=== PATIENT | male | born 1970 | race Caucasian/White ===

== ENCOUNTER → 2016-10-11 | Outpatient (CLI) | payer OTHER ==
[~2016-10-11] MED LIST: ADVIN25/60 INH; ALBU1AER9 INH; ALPR-411 PO; AMLO5TAB4 PO; ATOR-54 PO; OMEP20CA59 PO; RAMI5CAP PO
--- NOTE | 2016-10-11 12:24 | DIAGNOSTIC IMAGING REPORT ---
RIGHT KNEE 2 VIEWS CLINICAL HISTORY: Right knee pain. Findings: AP and lateral views of the right knee are obtained. No prior studies are available for comparison at the time of dictation. The skeletal structures are well mineralized. No fracture is seen. The joint spaces of the knee appear preserved. There is no significant joint effusion. Mild soft tissue swelling is suggested around the knee. IMPRESSION: Mild soft tissue swelling. No fracture is identified. Electronically signed by: Semaj Talbot M.D. 10/11/2016 12:23 PM Dictated Date/Time: 10/11/2016 12:22 PM
== END | disposition home or self-care (01) ==
LOC: C.RADBC 12:04
PROVIDERS: ATTEND Physician Assistant Medical
DX: M25.561 Pain in right knee (principal)

== ENCOUNTER → 2017-03-17 | Outpatient (CLI) | payer OTHER ==
--- NOTE | 2017-03-17 15:37 | DIAGNOSTIC IMAGING REPORT ---
R FOOT MIN 3 VIEWS ROUTINE CLINICAL HISTORY: 46 years-old Male presenting with FOOT PAIN,RIGHT. TECHNIQUE: Frontal, oblique, and lateral views the right foot were obtained. COMPARISON: None. FINDINGS: Accessory navicular noted. Prominent inferior calcaneal enthesophyte. No acute fracture or malalignment. No radiographic soft tissue abnormality. IMPRESSION: No acute osseous injury of the right foot. Electronically signed by: Jai Trujillo M.D. 03/17/2017 3:36 PM Dictated Date/Time: 03/17/2017 3:35 PM
== END | disposition home or self-care (01) ==
LOC: C.RADBC 14:43
PROVIDERS: ATTEND Physician Assistant Medical
DX: M79.671 Pain in right foot (principal)

== ENCOUNTER → 2017-05-19 | Outpatient (CLI) | payer OTHER ==
[2017-05-19 09:33] LABS: BASO % 0.7 %; BASO ABS # 0.03 K/uL (0-0.2); COMPLETE YES; EOS % 5.1 %; HEMATOCRIT 45.1 % (42-52); IG% 0.2 %; LYMPH % 32.9 %; LYMPH ABS # 1.41 K/uL (1.2-3.4); MEAN CELL VOLUME 90.4 fL (80-100); MEAN CORPUSCULAR HEMOGLOBIN 31.1 pg (25-34); MEAN CORPUSCULAR HGB CONC 34.4 g/dl (32-36); MEAN PLATELET VOLUME 10.4 fL (7.4-10.4); MONO % 9.8 %; NEUT % 51.3 %; PLATELET COUNT 168 K/uL (130-400); RED BLOOD COUNT 4.99 M/uL (4.7-6.1); WHITE BLOOD COUNT 4.28 K/uL (4.8-10.8)
[2017-05-19 10:00] LABS: ALT/SGPT 53 U/L (12-78); BLOOD UREA NITROGEN 16 mg/dl (7-18); BUN/CREATININE RATIO 15.7 (10-20); CARBON DIOXIDE 28 mmol/L (21-32); CHLORIDE 104 mmol/L (98-107); CHOLESTEROL 151 mg/dl (0-200); GLUCOSE 90 mg/dl (70-99); POTASSIUM 3.8 mmol/L (3.5-5.1); SODIUM 138 mmol/L (136-145); TRIGLYCERIDES 162 mg/dl (0-150); VERY LOW DENSITY LIPOPROT CALC 32 mg/dl
[2017-05-19 10:01] LABS: ALB/GLOB RATIO 1.4 (0.9-2); ALKALINE PHOSPHATASE 62 U/L (45-117); AST/SGOT 22 U/L (15-37); CHOLESTEROL/HDL RATIO 3.7; HDL CHOLESTEROL 41 mg/dl; LDL CHOLESTEROL CALCULATED 78 mg/dl
[2017-05-19 10:25] LABS: ESTIMATED AVERAGE GLUCOSE 103 mg/dl; HA1C FLAG Normal (Normal)
== END | disposition home or self-care (01) ==
LOC: C.LAB 07:08
PROVIDERS: ATTEND Internal Medicine
DX: E78.5 Hyperlipidemia, unspecified (principal); I10 Essential (primary) hypertension; J45.909 Unspecified asthma, uncomplicated; D86.3 Sarcoidosis of skin; F41.9 Anxiety disorder, unspecified; R07.9 Chest pain, unspecified

== ENCOUNTER → 2017-08-13 | Outpatient (CLI) | payer BC, OTHER ==
--- NOTE | 2017-08-13 12:21 | DIAGNOSTIC IMAGING REPORT ---
CHEST 2 VIEWS ROUTINE CLINICAL HISTORY: J45.909 [id number] Acute bronchitis dyspnea COMPARISON STUDY: 11/15/2012 FINDINGS: The bones soft tissues and hemidiaphragms are normal. The cardiomediastinal silhouette is normal. The lungs are clear. The pulmonary vasculature is normal. IMPRESSION: Negative chest. The above report was generated using voice recognition software. It may contain grammatical, syntax or spelling errors. Electronically signed by: Nicolas Avendaño M.D. 08/13/2017 12:20 PM Dictated Date/Time: 08/13/2017 12:20 PM
== END | disposition home or self-care (01) ==
LOC: C.RADBC 12:09
PROVIDERS: ATTEND Physician Assistant Medical
DX: J20.9 Acute bronchitis, unspecified (principal); J45.909 Unspecified asthma, uncomplicated

== ENCOUNTER → 2017-08-15 | Outpatient (CLI) | payer BC ==
--- NOTE | 2017-08-15 14:56 | DIAGNOSTIC IMAGING REPORT ---
TWO VIEW CHEST CLINICAL HISTORY: Dyspnea. Asthma and bronchitis. FINDINGS: PA and lateral chest radiographs are compared to study dated 08/13/2017 and correlated with chest CT dated 11/15/2012. The heart is top normal for projection. The mediastinal contour is within normal limits. There are low lung volumes with bibasilar atelectasis. The lungs and pleural spaces are otherwise clear. There is no pneumothorax. The bony thorax appears intact. IMPRESSION: Low lung volumes with no active disease in the chest. Electronically signed by: Semaj Talbot M.D. 08/15/2017 2:55 PM Dictated Date/Time: 08/15/2017 2:54 PM
== END | disposition home or self-care (01) ==
LOC: C.RADBC 14:29
PROVIDERS: ATTEND Internal Medicine
DX: J45.909 Unspecified asthma, uncomplicated (principal)

== ENCOUNTER 2022-06-10 18:03 | Inpatient (IN) ==
[2022-06-10 18:35] LABS: Basophils # (auto) 0.03 K/uL (0-0.2); Basophils % (auto) 0.6 %; Eosinophils # (auto) 0.13 K/uL (0-0.50); Eosinophils % (auto) 2.5 %; Hematocrit (blood only) 43.8 % (40.1-51.0); Hemoglobin 15.1 g/dl (14.0-18.0); Immature Granulocytes # (auto) 0.02 K/uL (0.00-0.02); Immature Granulocytes % (auto) 0.4 %; Lymphocytes # (auto) 0.69 K/uL (1.2-3.4); Lymphocytes % (auto) 13.2 %; Mean Corpuscular Hemoglobin 30.5 pg (25.0-34.0); Mean Corpuscular Hgb Conc 34.5 g/dL (32.0-36.0); Mean Corpuscular Volume 88.5 fL (80.0-100.0); Mean Platelet Volume 9.8 fL (9.4-12.4); Monocytes # (auto) 0.44 K/uL (0.24-0.82); Monocytes % (auto) 8.4 %; Neutrophils % (auto) 74.9 %; Platelet Count 169 K/uL (130-400); RDW Coefficient of Variation 12.4 % (11.5-14.5); RDW Standard Deviation 39.9 fL (36.4-46.3); Red Blood Count 4.95 M/uL (4.63-6.08); White Blood Count 5.21 K/ul (4.8-10.8)
[2022-06-10 18:52] LABS: D Dimer 380 ug/L FEU (0-500); Partial Thromboplastin Ratio 0.9; Partial Thromboplastin Time 23.7 Seconds (21.0-31.0); Prothrombin Time 10.3 Seconds (9.0-12.0)
[2022-06-10 18:58] LABS: Alanine Aminotransferase 46 U/L (7-52); Albumin Globulin Ratio 1.6 (0.9-2); Albumin Level 4.1 gm/dl (3.4-5.0); Alkaline Phosphatase 80 U/L (34-104); Anion Gap 9 (3-11); Aspartate Aminotransferase 31 U/L (13-39); Bilirubin,Total 0.8 mg/dl (0.2-1.0); Blood Urea Nitrogen 16 mg/dl (6-23); Calcium 8.6 mg/dl (8.5-10.1); Carbon Dioxide 24 mmol/L (21-32); Chloride 103 mmol/L (98-107); Creatinine Clr Calc Pharmacy 133.8 ml/min; Est GFR (African American) 118.3 ml/min; Est GFR (Non-African American) 102.1 ml/min; Globulin 2.6 gm/dl (2.5-4.0); Glucose 119 mg/dl (70-99(Fasting)); Sodium 136 mmol/L (136-145); Total Protein 6.7 gm/dl (6.0-8.3)
--- NOTE | 2022-06-10 18:59 | XRay Report ---
SINGLE VIEW CHEST CLINICAL HISTORY: Atypical chest pain FINDINGS: An AP, portable, upright chest radiograph is compared to study dated 01/28/2021 and correlat ed with chest CT dated 11/15/2012. The examination is degraded by portable technique and apical lordoti c positioning. The cardiomediastinal silhouette is unremarkable. The lungs and pleural spaces are jose juan ar. No pneumothorax is seen. The bony thorax is grossly intact. IMPRESSION: No active disease in the chest. ACT 112: Negative or not required by law. Electronically signed by: Semaj Talbot M.D. 06/10/2022 6:57 PM
[2022-06-10 19:00] LABS: Troponin I High Sensitivity < 2.3 pg/ml (0-20)
--- NOTE | 2022-06-10 19:24 | Emergency Department Note ---
Impression & Plan Retrosternal chest pain ED Provider Note INFORMANT: Patient and ED PROVIDER(S): Eron Kunz MD CHIEF COMPLAINT: Chest pain PLAN: Disposition: Admitted Condition: Good Outpatient prescription management: none Referral: None MEDICAL DECISION MAKING: Patient presented to emergency room because of chest pain. He also had a syncopal episode which was concerning. He has a strong family history of cardiac disease. A work-up was initiated. ECG showed a normal sinus rhythm ischemia. Repeat ECG did not reveal any significant change. Chest x-ray was unremarkable. Patient's CBC, chemistry panel and cardiac troponin were within normal limits. D-dimer was negative as well. Patient was treated with IV Zofran and IV Dilaudid. He was also hydrated. Patient was sent for ultrasound imaging. He did have sludge noted but no evidence of acute cholecystitis. Giv en his family history and the chest pain further management in the hospital was felt to be appropriate. Consultation was made with Dr. Randall Joe of the [facility] service. Case was discussed with his resident. Patient was evaluated in the ER for further management. Triage Nursing notes reviewed and agree them. Vital Signs: reviewed and remarkable for no significant abnormalities Prior /Outside records reviewed: none Differential diagnosis: Cardiac ischemia, aortic dissection, pulmonary embolism, pneumothorax, pneumonia, pericarditis, myocarditis, esophageal rupture, GERD, cholecystitis, pancreatitis, musculoskeletal, as well as other pathologies. Diagnostics, as interpreted by me: ECG: Twelve-lead ECG was normal sinus rhythm at [address] elevation or depression. No PACs or PVCs. Twelve-lead ECG #2 reveals a normal sinus rhythm at [address] elevation or depression. No change from ECG #1. Cardiac Monitoring: Cardiac monitoring ordered by me: The patient was placed on continuous cardiac monitoring and observed. It revealed a normal sinus rhythm at 67 beats per minute without ectopy or evidence of dysrhythmia. Medical decision rules: none Imaging studies: Chest x-ray. Findings: A chest x-ray was performed and revealed no pneumothorax, effusion, infiltrate, pulmonary edema, free air under the diaphragm, or wide mediastinum. Impression: No acute disease. Gallbladder ultrasound imaging as above. I refer you to the EMR for further details. HPI: The patient is a 52 year old male who presents to the Emergency Room with complaints of retrosternal chest pain. This started around 4 pm and is pressure like. The patient also notes the following associated symptoms, SOB, syncopal episode, diaphoresis, nausea. The patient has tried pepto-bismol for relieving factors. Current pain is rated as 5/10. Patient notes that his dad had 2 cardiac events in his 40s and has had multiple stents pt denies headache, fevers, chills, diaphoresis, visual changes, neck pain, vomiting, abdominal pain, back pain, melena, hematochezia, urinary symptoms, numbness, weakness, lymphadenopathy, rash, or other complaints. PAST MEDICAL HISTORY: See Below, HTN, asthma PAST SURGICAL HISTORY: See Below, FAM HX: CAD SOCIAL HISTORY: See Below,non-smoker HOME MEDICATIONS: See Below ALLERGIES: See Below VITALS: See Below PHYSICAL EXAMINATION: GENERAL: Awake, alert, uncomfortable-appearing, in no distress HENT: Normocephalic, atraumatic. Oropharynx unremarkable. EYES: Normal conjunctiva. Sclera non-icteric. NECK: Inspection normal. Non-tender. Supple. No nuchal rigidity. FROM. No masses. RESPIRATORY: Clear to auscultation. No wheezes. No rales. Normal respiratory effort. CARDIAC: Normal rate. Normal rhythm. No murmurs. No rubs. Extremities warm and well perfused. Pulses equal. No JVD. GI: Soft, non-distended. No tenderness to palpation. No rebound or guarding. No masses. RECTAL: Deferred. MUSCULOSKELETAL: Atraumatic. Chest examination reveals no tenderness. The back is symmetrical on inspection without obvious abnormality. There is no CVA tende rness to palpation. No joint edema. LOWER EXTREMITIES: Calves are equal size bilaterally and non-tender. No edema. No discoloration. NEURO: Normal sensorium. No sensory or motor deficits noted. SKIN: No rash or jaundice noted. Past Med/Surg History Medical History (Updated 06/10/22 @ 23:08 by Estiven Hernandez MD) Abdominal pain Anxiety disorder, unspecified Asthma well controlled COVID Encounter for pre-operative examination Essential (primary) hypertension Gastroesophageal reflux disease Hepatic steatosis History of COVID-25 January 2021, treated at [facility] Emergency Room. symptoms: 103 fever, +sob and severe cough, fatigue and weakness. Hyperlipidemia Obsessive compulsive disorder Rectal bleeding Trigger thumb, left thumb Surgical History H/O knee surgery right knee H/O repair of rotator cuff left H/O vasectomy Family History Mother Anxiety Father Heart disease Myocardial infarction Hypertension Hearing loss Sister Anxiety Grandmother (Maternal) Bone cancer Leukemia Denies family history of Ovarian cancer Prostate cancer Breast cancer Colorectal cancer Stroke Social History Smoking Status: Never smoker Second Hand Exposure: No; Hx Alcohol Use: Yes Alcohol type: beer Hx Substance Use: No Preferred Language: Turkmen Communication Ability: Effective Visual Impairment: Limited Hearing Ability: Normal Machine Gunner Required: No Beliefs That Will Affect Care: None marital status: Current Living Situation: Spouse and Family Current Living Situation Comment: lives with and son current occupational status: employed How many Children do You have: 1 Other Information That Helps Us Care for You: No Feels Safe at Home: Yes Safety Concerns: Feels Safe At This Time Childhood Exposure to Second-Hand Smoke: No caffeine: Yes Dental Care, Regularly: Yes Physical Activity Frequency: Does not Exercise Seatbelt Use: always Sunscreen Use: Yes Assistive Devices: Glasses Allergies Allergies Allergy/AdvReac Type Severity Reaction Status Date / Time No Known Allergies Allergy Unknown Verified 06/10/22 23:16 Home Meds Home Medications Medication Instructions Recorded Confirmed albuterol sulfate 90 mcg/actuation 1 puffs inhalation Q6H PRN 04/06/19 06/10/22 aerosol inhaler (ProAir HFA) Shortness Of Breath fluvoxamine 50 mg tablet 50 mg PO BID 06/10/22 06/10/22 Previous Rx's Medication Instructions Recorded pantoprazole 40 mg tablet,delayed 40 mg PO QAM #90 tabs 08/15/21 release (Protonix) ramipril 10 mg capsule (Altace) 10 mg PO QAM #90 caps 10/08/21 atorvastatin 20 mg tablet (Lipitor) 20 mg PO HS #90 tabs 04/15/22 alprazolam 0.5 mg tablet (Xanax) 0.5 mg PO DAILY PRN anxiety #45 04/29/22 tabs alfuzosin 10 mg tablet,extended 10 mg PO DAILY #90 tabs 04/30/22 release 24 hr (Uroxatral) amlodipine 5 mg tablet (Norvasc) 5 mg PO QAM #90 tabs 05/01/22 fluticasone furoate 100 1 inh inhalation DAILY #60 ea 05/07/22 mcg-vilanterol 25 mcg/dose inhalation powder (Breo Ellipta) silodosin 8 mg capsule (Rapaflo) 8 mg PO DAILY #30 caps 06/04/22 Results & Data (ED) Vital Signs Vital Signs - 24 hr 06/10/22 18:04 06/10/22 18:27 06/10/22 19:10 Temperature 37.1 C Temperature Source Oral Pulse Rate 92 H Pulse Rate [Left Finger] Pulse Rate from SpO2 Sensor Pulse Rhythm [Left Finger] Pulse Strength [Left Finger] Respiratory Rate 16 Respiratory Effort / Characteristics Non-Labored Respiratory Depth Normal Respiratory Pattern Regular Blood Pressure 136/80 Blood Pressure [Left Arm] Blood Pressure Mean 98 Blood Pressure Mean [Left Arm] Blood Pressure Position [Left Arm] Pulse Oximetry 97 99 Oxygen Delivery Method Room Air Room Air Room Air Sepsis Recent Fever Within 48 Hours No Sepsis New/Unexplained Change in Mental Status N/A Sepsis Action Taken by Nursing No Action Required 06/10/22 18:15 06/10/22 18:19 06/10/22 18:19 Temperature Temperature Source Pulse Rate 92 H 88 Pulse Rate [Left Finger] Pulse Rate from SpO2 Sensor 88 Pulse Rhythm [Left Finger] Pulse Strength [Left Finger] Respiratory Rate 12 14 Respiratory Effort / Characteristics Respiratory Depth Respiratory Pattern Blood Pressure 132/83 Blood Pressure [Left Arm] Blood Pressure Mean 99 Blood Pressure Mean [Left Arm] Blood Pressure Position [Left Arm] Pulse Oximetry 95 Oxygen Delivery Method Sepsis Recent Fever Within 48 Hours Sepsis New/Unexplained Change in Mental Status Sepsis Action Taken by Nursing 06/10/22 18:20 06/10/22 18:30 06/10/22 18:40 Temperature Temperature Source Pulse Rate 97 H 87 86 Pulse Rate [Left Finger] Pulse Rate from SpO2 Sensor 96 H 87 87 Pulse Rhythm [Left Finger] Pulse Strength [Left Finger] Respiratory Rate 21 16 15 Respiratory Effort / Characteristics Respiratory Depth Respiratory Pattern Blood Pressure Blood Pressure [Left Arm] Blood Pressure Mean Blood Pressure Mean [Left Arm] Blood Pressure Position [Left Arm] Pulse Oximetry 95 95 96 Oxygen Delivery Method Sepsis Recent Fever Within 48 Hours Sepsis New/Unexplained Change in Mental Status Sepsis Action Taken by Nursing 06/10/22 18:50 06/10/22 19:00 06/10/22 19:10 Temperature Temperature Source Pulse Rate 90 87 94 H Pulse Rate [Left Finger] Pulse Rate from SpO2 Sensor 88 89 93 H Pulse Rhythm [Left Finger] Pulse Strength [Left Finger] Respiratory Rate 16 16 20 Respiratory Effort / Characteristics Respiratory Depth Respiratory Pattern Blood Pressure Blood Pressure [Left Arm] Blood Pressure Mean Blood Pressure Mean [Left Arm] Blood Pressure Position [Left Arm] Pulse Oximetry 95 95 94 Oxygen Delivery Method Sepsis Recent Fever Within 48 Hours Sepsis New/Unexplained Change in Mental Status Sepsis Action Taken by Nursing 06/10/22 19:20 06/10/22 19:30 06/10/22 19:40 Temperature Temperature Source Pulse Rate 91 H 83 92 H Pulse Rate [Left Finger] Pulse Rate from SpO2 Sensor 91 H 87 91 H Pulse Rhythm [Left Finger] Pulse Strength [Left Finger] Respiratory Rate 24 19 13 Respiratory Effort / Characteristics Respiratory Depth Respiratory Pattern Blood Pressure 128/86 Blood Pressure [Left Arm] Blood Pressure Mean 100 Blood Pressure Mean [Left Arm] Blood Pressure Position [Left Arm] Pulse Oximetry 95 95 96 Oxygen Delivery Method Sepsis Recent Fever Within 48 Hours Sepsis New/Unexplained Change in Mental Status Sepsis Action Taken by Nursing 06/10/22 19:41 06/10/22 19:41 06/10/22 19:50 Temperature Temperature Source Pulse Rate 87 86 Pulse Rate [Left Finger] Pulse Rate from SpO2 Sensor 89 87 Pulse Rhythm [Left Finger] Pulse Strength [Left Finger] Respiratory Rate 12 13 Respiratory Effort / Characteristics Respiratory Depth Respiratory Pattern Blood Pressure 128/86 Blood Pressure [Left Arm] Blood Pressure Mean 100 Blood Pressure Mean [Left Arm] Blood Pressure Position [Left Arm] Pulse Oximetry 95 95 Oxygen Delivery Method Sepsis Recent Fever Within 48 Hours Sepsis New/Unexplained Change in Mental Status Sepsis Action Taken by Nursing 06/10/22 20:40 06/10/22 20:50 06/10/22 21:00 Temperature Temperature Source Pulse Rate 79 77 Pulse Rate [Left Finger] Pulse Rate from SpO2 Sensor 80 79 Pulse Rhythm [Left Finger] Pulse Strength [Left Finger] Respiratory Rate 15 13 Respiratory Effort / Characteristics Respiratory Depth Respiratory Pattern Blood Pressure 122/73 Blood Pressure [Left Arm] Blood Pressure Mean 89 Blood Pressure Mean [Left Arm] Blood Pressure Position [Left Arm] Pulse Oximetry 94 94 Oxygen Delivery Method Sepsis Recent Fever Within 48 Hours Sepsis New/Unexplained Change in Mental Status Sepsis Action Taken by Nursing 06/10/22 21:00 06/10/22 21:10 06/10/22 21:20 Temperature Temperature Source Pulse Rate 72 82 88 Pulse Rate [Left Finger] Pulse Rate from SpO2 Sensor 73 83 87 Pulse Rhythm [Left Finger] Pulse Strength [Left Finger] Respiratory Rate 16 13 14 Respiratory Effort / Characteristics Respiratory Depth Respiratory Pattern Blood Pressure Blood Pressure [Left Arm] Blood Pressure Mean Blood Pressure Mean [Left Arm] Blood Pressure Position [Left Arm] Pulse Oximetry 91 94 93 Oxygen Delivery Method Sepsis Recent Fever Within 48 Hours Sepsis New/Unexplained Change in Mental Status Sepsis Action Taken by Nursing 06/10/22 21:30 06/10/22 21:30 06/10/22 21:40 Temperature Temperature Source Pulse Rate 76 87 Pulse Rate [Left Finger] Pulse Rate from SpO2 Sensor 76 Pulse Rhythm [Left Finger] Pulse Strength [Left Finger] Respiratory Rate 13 18 Respiratory Effort / Characteristics Respiratory Depth Respiratory Pattern Blood Pressure 114/84 Blood Pressure [Left Arm] Blood Pressure Mean 94 Blood Pressure Mean [Left Arm] Blood Pressure Position [Left Arm] Pulse Oximetry 90 Oxygen Delivery Method Sepsis Recent Fever Within 48 Hours Sepsis New/Unexplained Change in Mental Status Sepsis Action Taken by Nursing 06/10/22 21:50 06/10/22 22:00 06/10/22 22:00 Temperature Temperature Source Pulse Rate 83 70 Pulse Rate [Left Finger] Pulse Rate from SpO2 Sensor 84 69 Pulse Rhythm [Left Finger] Pulse Strength [Left Finger] Respiratory Rate 17 17 Respiratory Effort / Characteristics Respiratory Depth Respiratory Pattern Blood Pressure 107/79 Blood Pressure [Left Arm] Blood Pressure Mean 88 Blood Pressure Mean [Left Arm] Blood Pressure Position [Left Arm] Pulse Oximetry 93 92 Oxygen Delivery Method Sepsis Recent Fever Within 48 Hours Sepsis New/Unexplained Change in Mental Status Sepsis Action Taken by Nursing 06/10/22 22:10 06/10/22 22:20 06/10/22 22:30 Temperature Temperature Source Pulse Rate 79 74 70 Pulse Rate [Left Finger] Pulse Rate from SpO2 Sensor 78 73 72 Pulse Rhythm [Left Finger] Pulse Strength [Left Finger] Respiratory Rate 14 16 14 Respiratory Effort / Characteristics Respiratory Depth Respiratory Pattern Blood Pressure Blood Pressure [Left Arm] Blood Pressure Mean Blood Pressure Mean [Left Arm] Blood Pressure Position [Left Arm] Pulse Oximetry 95 90 90 Oxygen Delivery Method Sepsis Recent Fever Within 48 Hours Sepsis New/Unexplained Change in Mental Status Sepsis Action Taken by Nursing 06/10/22 22:20 Temperature 37 C Temperature Source Oral Pulse Rate Pulse Rate [Left Finger] 67 Pulse Rate from SpO2 Sensor Pulse Rhythm [Left Finger] Regular Pulse Strength [Left Finger] Normal Respiratory Rate 18 Respiratory Effort / Characteristics Non-Labored Spontaneous Respiratory Depth Normal Respiratory Pattern Blood Pressure Blood Pressure [Left Arm] 125/79 Blood Pressure Mean Blood Pressure Mean [Left Arm] 94 Blood Pressure Position [Left Arm] Lying Pulse Oximetry 94 Oxygen Delivery Method Room Air Sepsis Recent Fever Within 48 Hours Sepsis New/Unexplained Change in Mental Status Sepsis Action Taken by Nursing Laboratory Data Result diagrams: 06/10/22 18:17 06/10/22 18:17 Lab Results 06/10/22 06/10/22 06/10/22 Range/Units 18:17 18:17 18:17 WBC 5.21 (4.8-10.8) K/ul RBC 4.95 (4.63-6.08) M/uL Hgb 15.1 (14.0-18.0) g/dl Hct 43.8 (40.1-51.0) % MCV 88.5 (80.0-100.0) fL MCH 30.5 (25.0-34.0) pg MCHC 34.5 (32.0-36.0) g/dL RDW Std Deviation 39.9 (36.4-46.3) fL RDW Coeff of Frank 12.4 (11.5-14.5) % Plt Count 169 (130-400) K/uL MPV 9.8 (9.4-12.4) fL Immature Gran % (Auto) 0.4 % Neut % (Auto) 74.9 % Lymph % (Auto) 13.2 % Rawlins % (Auto) 8.4 % Eos % (Auto) 2.5 % Baso % (Auto) 0.6 % Neut # (Auto) 3.90 (1.4-6.5) K/uL Lymph # (Auto) 0.69 L (1.2-3.4) K/uL Rawlins # (Auto) 0.44 (0.24-0.82) K/uL Eos # (Auto) 0.13 (0-0.50) K/uL Baso # (Auto) 0.03 (0-0.2) K/uL Immature Gran # (Auto) 0.02 (0.00-0.02) K/uL PT 10.3 (9.0-12.0) Seconds INR 1.0 (0.9-1.1) APTT 23.7 (21.0-31.0) Seconds PTT Ratio 0.9 D-Dimer 380 (0-500) ug/L FEU Sodium 136 (136-145) mmol/L Potassium 4.0 (3.5-5.1) mmol/L Chloride 103 (98-107) mmol/L Carbon Dioxide 24 (21-32) mmol/L Anion Gap 9 (3-11) BUN 16 (6-23) mg/dl Creatinine 0.84 (0.6-1.4) mg/dl Est Cr Clr Drug Dosing 133.8 ml/min Est GFR ( Amer) 118.3 ml/min Est GFR (Non-Af Amer) 102.1 ml/min BUN/Creatinine Ratio 19.0 (10-20) Glucose 119 H (70-99(Fasting)) mg/dl Calcium 8.6 (8.5-10.1) mg/dl Total Bilirubin 0.8 (0.2-1.0) mg/dl AST 31 (13-39) U/L ALT 46 (7-52) U/L Alkaline Phosphatase 80 (34-104) U/L Troponin I High Sens < 2.3 (0-20) pg/ml Total Protein 6.7 (6.0-8.3) gm/dl Albumin 4.1 (3.4-5.0) gm/dl Globulin 2.6 (2.5-4.0) gm/dl Albumin/Globulin Ratio 1.6 (0.9-2) SARS-CoV-2 (PCR) (Negative) Influenza Type A (PCR) (Neg) Influenza Type B (PCR) (Neg) RSV (RT-PCR) (Neg) 06/10/22 Range/Units 19:10 WBC (4.8-10.8) K/ul RBC (4.63-6.08) M/uL Hgb (14.0-18.0) g/dl Hct (40.1-51.0) % MCV (80.0-100.0) fL MCH (25.0-34.0) pg MCHC (32.0-36.0) g/dL RDW Std Deviation (36.4-46.3) fL RDW Coeff of Frank (11.5-14.5) % Plt Count (130-400) K/uL MPV (9.4-12.4) fL Immature Gran % (Auto) % Neut % (Auto) % Lymph % (Auto) % Rawlins % (Auto) % Eos % (Auto) % Baso % (Auto) % Neut # (Auto) (1.4-6.5) K/uL Lymph # (Auto) (1.2-3.4) K/uL Rawlins # (Auto) (0.24-0.82) K/uL Eos # (Auto) (0-0.50) K/uL Baso # (Auto) (0-0.2) K/uL Immature Gran # (Auto) (0.00-0.02) K/uL PT (9.0-12.0) Seconds INR (0.9-1.1) APTT (21.0-31.0) Seconds PTT Ratio D-Dimer (0-500) ug/L FEU Sodium (136-145) mmol/L Potassium (3.5-5.1) mmol/L Chloride (98-107) mmol/L Carbon Dioxide (21-32) mmol/L Anion Gap (3-11) BUN (6-23) mg/dl Creatinine (0.6-1.4) mg/dl Est Cr Clr Drug Dosing ml/min Est GFR ( Amer) ml/min Est GFR (Non-Af Amer) ml/min BUN/Creatinine Ratio (10-20) Glucose (70-99(Fasting)) mg/dl Calcium (8.5-10.1) mg/dl Total Bilirubin (0.2-1.0) mg/dl AST (13-39) U/L ALT (7-52) U/L Alkaline Phosphatase (34-104) U/L Troponin I High Sens (0-20) pg/ml Total Protein (6.0-8.3) gm/dl Albumin (3.4-5.0) gm/dl Globulin (2.5-4.0) gm/dl Albumin/Globulin Ratio (0.9-2) SARS-CoV-2 (PCR) NEGATIVE (Negative) Influenza Type A (PCR) Negative (Neg) Influenza Type B (PCR) Negative (Neg) RSV (RT-PCR) Negative (Neg) Administered Medications Enoxaparin Sodium (Enoxaparin Inj 40 Mg/0.4 Ml Syr) 40 mg SQ Q12 BANDAR Stop: 07/11/22 01:29 Last Admin: 06/11/22 01:52 Dose: Not Given Documented By: CHICO Fluvoxamine Maleate (Fluvoxamine Maleate 50 Mg Tab) 50 mg PO BID BANDAR Stop: 07/11/22 00:59 Last Admin: 06/11/22 01:55 Dose: 50 mg Documented By: CHICO Sodium Chloride (Nss 1000ml) 1,000 mls @ 125 mls/hr IV .Q8H BANDAR Stop: 07/10/22 19:29 Last Admin: 06/11/22 00:53 Dose: 125 mls/hr Documented By: Infusion: 06/11/22 00:53 Dose: 125 mls/hr Documented By: Admin: 06/10/22 19:37 Dose: 125 mls/hr Documented By: JUAN Discontinued Medications Hydromorphone HCl (Hydromorphone Inj 0.5 Mg/0.5 Ml Syr) 0.5 mg IV Q15M PRN PRN Reason: Pain Stop: 06/24/22 19:25 Last Admin: 06/10/22 21:14 Dose: 0.5 mg Documented By: Admin: 06/10/22 19:36 Dose: 0.5 mg Documented By: JUAN Sodium Chloride (Nss 1000ml) 500 mls @ 999 mls/hr IV .Q31M ONE Stop: 06/10/22 19:56 Last Infusion: 06/10/22 20:10 Dose: 0 mls/hr Documented By: Admin: 06/10/22 19:37 Dose: 999 mls/hr Documented By: JUAN Ondansetron HCl (Ondansetron Inj 2 Mg/Ml 2 Ml Vial) 4 mg IV NOW STA Stop: 06/10/22 19:27 Last Admin: 06/10/22 19:36 Dose: 4 mg Documented By: JUAN Ondansetron HCl (Ondansetron Inj 2 Mg/Ml 2 Ml Vial) 4 mg IV NOW STA Stop: 06/10/22 21:08 Last Admin: 06/10/22 21:14 Dose: 4 mg Documented By: [facility] Imaging Data Radiologist's Impression: Chest X-Ray 06/10/22 18:26 SINGLE VIEW CHEST CLINICAL HISTORY: Atypical chest pain FINDINGS: An AP, portable, upright chest radiograph is compared to study dated 01/28/2021 and correlated with chest CT dated 11/15/2012. The examination is degraded by portable technique and apical lordotic positioning. The cardiomediastinal silhouette is unremarkable. The lungs and pleural spaces are clear. No pneumothorax is seen. The bony thorax is grossly intact. IMPRESSION: No active disease in the chest. ACT 112: Negative or not required by law. Electronically signed by: Semaj Talbot M.D. 06/10/2022 6:57 PM Gallbladder Ultrasound 06/10/22 19:26 ULTRASOUND RIGHT UPPER QUADRANT ABDOMEN CLINICAL HISTORY: Nausea. Right upper quadrant abdominal pain. COMPARISON STUDY: Abdominal CT dated 03/27/2021 TECHNIQUE: Real-time, grayscale, and color flow sonography of the right upper quadrant of the abdomen was performed. Images are reviewed in the transverse and longitudinal planes. FINDINGS: Liver: The liver is enlarged and demonstrates heterogeneously increased echotexture indicating severe steatosis. Note that this degrades acoustic pene tration of the liver. Fatty sparing is seen adjacent to gallbladder fossa. There is no intrahepatic biliary ductal dilatation. The main portal vein is patent. Gallbladder: Biliary sludge is suspected. There are no shadowing gallstones identified. There is no gallbladder wall thickening or pericholecystic fluid. A sonographic Paulino's sign is reportedly absent. The common bile duct measures up to 0.5 cm in diameter. Pancreas: Not visualized due to overlying bowel gas. Right kidney: Survey images of the right kidney demonstrate normal size and echotexture. There is no hydronephrosis. Ascites: None. IMPRESSION: 1. Hepatomegaly and severe hepatic steatosis. 2. Suspect biliary sludge. No shadowing gallstones are identified and there is no sonographic evidence of acute cholecystitis. 3. Nonvisualization of the pancreas. ACT 112: Negative or not required by law. Electronically signed by: Semaj Talbot M.D. 06/10/2022 8:43 PM Discharge Plan Visit Data Chief Complaint: Cardiac Assessment Stated Complaint: SYNCOPE/ARM PAIN/CHEST PAIN ED Provider: Eron Kunz Discharge Problem: Retrosternal chest pain Patient Disposition: Admitted As Inpatient Discharge Instructions Interventions: ED Discharge Assessment Last Done: 06/10/22 23:35
[2022-06-10] MEDS ORDERED: SODIUM CHLORIDE 0.9% 1000ML 500 ML IV ONE (19:26)
[2022-06-10] MEDS ORDERED: ONDANSETRON INJ 2 MG/ML 2 ML VIAL IV STA ×2 (19:26→21:07)
[2022-06-10] MEDS: HYDROmorphone INJ 0.5 MG/0.5 ML SYR IV PRN ×2 (19:36→21:14)
[2022-06-10] MEDS: SODIUM CHLORIDE 0.9% 1000ML 1,000 ML IV SCH (19:37)
[2022-06-10 20:06] LABS: Influenza A virus by PCR Negative (Neg); Influenza B virus by PCR Negative (Neg); RSV by PCR Negative (Neg); SARS CoV2 RNA(COVID-19) Ceph NEGATIVE (Negative)
--- NOTE | 2022-06-10 20:44 | Ultrasound Report ---
ULTRASOUND RIGHT UPPER QUADRANT ABDOMEN CLINICAL HISTORY: Nausea. Right upper quadrant abdominal pain. COMPARISON STUDY: Abdominal CT dated 03/27/2021 TECHNIQUE: Real-time, grayscale, and color flow sonography of the right upper quadrant of the abdomen was performed. Images are reviewed in the transverse and longitudinal planes. FINDINGS: Liver: The liver is enlarged and demonstrates heterogeneously increased echotexture indicating severe steatosis. Note that this degrades acoustic penetration of the liver. Fatty sparing is seen adjacent to gallbladder fossa. There is no intrahepatic biliary ductal dilatation. The main portal vein is pa tent. Gallbladder: Biliary sludge is suspected. There are no shadowing gallstones identified. There is no g allbladder wall thickening or pericholecystic fluid. A sonographic Paulino's sign is reportedly absent . The common bile duct measures up to 0.5 cm in diameter. Pancreas: Not visualized due to overlying bowel gas. Right kidney: Survey images of the right kidney demonstrate normal size and echotexture. There is no hydronephrosis. Ascites: None. IMPRESSION: 1. Hepatomegaly and severe hepatic steatosis. 2. Suspect biliary sludge. No shadowing gallstones are identified and there is no sonographic evidenc e of acute cholecystitis. 3. Nonvisualization of the pancreas. ACT 112: Negative or not required by law. Electronically signed by: Semaj Talbot M.D. 06/10/2022 8:43 PM
--- NOTE | 2022-06-10 22:26 | History & Physical Report ---
Date of Service June 10, 2022 Assessment & Plan (1) Chest pain: Plan: Retrosternal chest pressure that started after several hours of worsening nausea, which worsened after fatty breakfast. EKG normal x2 and hsTroponin negative x1. Chest pain also worse with palpation and patient reports right scapular pain radiating to RUQ --> suspect costochondritis vs biliary cholic vs GERD, rather than ACS. - admit for observation, given past chest pain and ASCVD risk factors - repeat hsTroponin now and in AM - plan for stress echo in AM - maintain NPO for stress test - consulted Cardiology - appreciate recs - no transaminitis - repeat CMP in AM - consider HIDA vs CT A/P if suspicious for developing cholecystitis/biliary duct pathology - PRN Tylenol for pain, PRN Zofran for nausea - PRN EKG for worsening chest pain - continue maintenance IVFs: NSS @125cc/hr (NPO and currently nauseous) (2) Biliary colic: Plan: Chronically patient has stomach bloating and nausea whenever he eats fatty foods. In context of right shoulder blade / RUQ pain today as well as gallbladder sludge on US, suspect biliary colic. May be impetus of chest pain as stated above. - plan as above - may benefit from elective cholecystectomy as outpatient - defer to PCP (3) Gastroesophageal reflux disease: Plan: Current nausea may be 2/2 to uncontrolled GERD. - Continue home Protonix - Consider increase in treatments - defer to primary team/PCP (4) Essential (primary) hypertension: Plan: Normotensive in ED. Continue home Amlodipine and Ramipril (5) Hyperlipidemia: Plan: LDL 58 when checked in 02/2021. Check lipid profile in AM. Continue home statin. (6) Hepatic steatosis: Plan: Chronic, per previous imaging. With associated hepatomegaly on today's US. Likely STUBBS. - needs weight loss counseling - defer to PCP (7) Unspecified asthma, uncomplicated: Plan: Continue home inhaler (8) Lower urinary tract symptoms (LUTS): Plan: Continue home Alfuzosin and Silodosin (9) Anxiety disorder, unspecified: Plan: Continue home Fluvoxamine Plan FEN/GI: NPO, NSS @125cc/hr DVT Prophylaxis: Lovenox SQ Code Status: full code Disposition: med/tele History of Present Illness Chief Complaint: chest pain Primary Care Provider: Jai Tejeda MD Toro Purvis is a 52yo male with PMHx significant for HTN, dyslipidemia, obesity (BMI 38.7), GERD, BPH with LUTS, asthma, anxiety and family h/o CAD (father had multiple stents in his 40s) who presented to [facility] ED on 06/10 for substernal chest pressure with associated SOB, nausea, diaphoresis and syncopal episode earlier today without head trauma. Patient took Pepto-Bismol without improvement in pain and also took Aspirin 324mg PO before coming to ED. Of note patient follows with [facility] Cardiology due to past episodes of chest pain. He had normal stress echo in 10/2021. In the ED the patient was afebrile and hemodynamically stable on room air. EKG x2 both with NSR without ST/T abnormalities, and hsTroponin negative x1. CBC/CMP/coags WNL. D-dimer 380. COVID/flu/RSV negative. CXR unremarkable and US gallbladder showing suspected biliary sludge without gallstones or evidence of cholecystitis; also with hepatomegaly and severe hepatic steatosis. In the ED the patient was given Zofran 4mg IV x2, Dilaudid 0.5mg IV x2 and NSS 500cc bolus. Was also started on maintenance NSS @125cc/hr. Allergies Allergy/AdvReac Type Severity Reaction Status Date / Time No Known Allergies Allergy Unknown Verified 06/10/22 23:16 Home Medications Medication Instructions Recorded Confirmed Type albuterol sulfate 90 mcg/actuation 1 puffs inhalation Q6H PRN 04/06/19 06/10/22 History aerosol inhaler (ProAir HFA) Shortness Of Breath pantoprazole 40 mg tablet,delayed 40 mg PO QAM #90 tabs 08/15/21 06/10/22 Rx release (Protonix) ramipril 10 mg capsule (Altace) 10 mg PO QAM #90 caps 10/08/21 06/10/22 Rx atorvastatin 20 mg tablet (Lipitor) 20 mg PO HS #90 tabs 04/15/22 06/10/22 Rx alprazolam 0.5 mg tablet (Xanax) 0.5 mg PO DAILY PRN anxiety #45 04/29/22 06/10/22 Rx tabs alfuzosin 10 mg tablet,extended 10 mg PO DAILY #90 tabs 04/30/22 06/10/22 Rx release 24 hr (Uroxatral) amlodipine 5 mg tablet (Norvasc) 5 mg PO QAM #90 tabs 05/01/22 06/10/22 Rx fluticasone furoate 100 1 inh inhalation DAILY #60 ea 05/07/22 06/10/22 Rx mcg-vilanterol 25 mcg/dose inhalation powder (Breo Ellipta) silodosin 8 mg capsule (Rapaflo) 8 mg PO DAILY #30 caps 06/04/22 06/10/22 Rx fluvoxamine 50 mg tablet 50 mg PO BID 06/10/22 06/10/22 History Past Med/Surg History Medical History (Updated 06/10/22 @ 23:08 by Estiven Hernandez MD) Abdominal pain Anxiety disorder, unspecified Asthma well controlled COVID Encounter for pre-operative examination Essential (primary) hypertension Gastroesophageal reflux disease Hepatic steatosis History of COVID-25 January 2021, treated at [facility] Emergency Room. symptoms: 103 fever, +sob and severe cough, fatigue and weakness. Hyperlipidemia Obsessive compulsive disorder Rectal bleeding Trigger thumb, left thumb Surgical History H/O knee surgery right knee H/O repair of rotator cuff left H/O vasectomy Family History Mother Anxiety Father Heart disease Myocardial infarction Hypertension Hearing loss Sister Anxiety Grandmother (Maternal) Bone cancer Leukemia Denies family history of Ovarian cancer Prostate cancer Breast cancer Colorectal cancer Stroke Social History Smoking Status: Never smoker Second Hand Exposure: No; Hx Alcohol Use: Yes Alcohol type: beer Hx Substance Use: No Preferred Language: Bulgarian Communication Ability: Effective Visual Impairment: Limited Hearing Ability: Normal Reserve Officer Required: No Beliefs That Will Affect Care: None marital status: Current Living Situation: Spouse and Family Current Living Situation Comment: lives with and son current occupational status: employed How many Children do You have: 1 Other Information That Helps Us Care for You: No Feels Safe at Home: Yes Safety Concerns: Feels Safe At This Time Childhood Exposure to Second-Hand Smoke: No caffeine: Yes Dental Care, Regularly: Yes Physical Activity Frequency: Does not Exercise Seatbelt Use: always Sunscreen Use: Yes Assistive Devices: None Review of Systems Review of Systems: All systems reviewed & are unremarkable except as noted in HPI & below Physical Exam Physical Exam: General: A&Ox3. NAD. Cooperative. HEENT: Atraumatic, normocephalic. Pulm: CTAB A&P. -wheezes, -rales, -rhonchi. Symmetrical chest rise. No increase work of breathing. No respiratory distress. Cardiac: RRR, -mrg. Radial pulses intact and symmetrical. No LE edema. Chest: increase in retrosternal tenderness with palpation to chest wall Abdominal: soft, mildly distended, RUQ tenderness to palpation with negative Paulino's sign, NA BS x 4 Skin: warm, dry, no rash Results & Data Results & Data ([facility]) Vital Signs (Past 12 Hours) Vital Signs Temp Pulse Resp BP Pulse Ox O2 Del Method 06/10/22 21:00 72 16 91 06/10/22 21:00 122/73 06/10/22 20:50 77 13 94 06/10/22 20:40 79 15 94 06/10/22 19:50 86 13 95 06/10/22 19:41 128/86 06/10/22 19:41 87 12 95 06/10/22 19:40 92 H 13 128/86 96 06/10/22 19:30 83 19 95 06/10/22 19:20 91 H 24 95 06/10/22 19:10 94 H 20 94 06/10/22 19:00 87 16 95 06/10/22 18:50 90 16 95 06/10/22 18:40 86 15 96 06/10/22 18:30 87 16 95 06/10/22 18:20 97 H 21 95 06/10/22 18:19 88 14 95 06/10/22 18:19 132/83 06/10/22 18:15 92 H 12 06/10/22 19:10 Room Air 06/10/22 18:27 99 Room Air 06/10/22 18:04 37.1 C 92 H 16 136/80 97 Room Air Supervising Physician Co-Signing Physician Notes Attending addendum: I have physically seen this patient, have supervised the medical residents activities, and agree with the H&P unless as otherwise noted. Assessment and Plan: Chest pain/hypertension- The patient will be admitted to telemetry for serial cardiac enzymes, serial EKG's, cardiac rhythm monitoring and a 2-D echocardiogram with Dopplers. Multiple risk factors as noted Continue amlodipine and ramipril Cardiology consulted Biliary colic- Symptoms aggravated by fatty meal Continue pantoprazole HIDA scan Anxiety- Continue fluvoxamine and alprazolam Remaining orders and notations as noted Resident Activity Tracking Resident Involvement: Resident Care Provided Care Provided: Adult Hospital Medicine (1) Hyperlipidemia Hyperlipidemia type: pure hypercholesterolemia Qualified Code(s): E78.00 - Pure hypercholesterolemia, unspecified
[2022-06-11 00:01] LABS: Troponin I High Sensitivity < 2.3 pg/ml (0-20)
[2022-06-11 00:02] LABS: Lipase 16 U/L (11-82)
[2022-06-11] MEDS ORDERED: ACETAMINOPHEN 1,000 MG/100 ML VIAL IV PRN (00:43)
[2022-06-11] MEDS: SODIUM CHLORIDE 0.9% 1000ML 1,000 ML IV SCH ×3 (00:53→18:31)
[2022-06-11] MEDS: ENOXAPARIN INJ 40 MG/0.4 ML SYR SQ SCH ×4 (01:52→20:26)
[2022-06-11] MEDS: fluvoxaMINE MALEATE 50 MG TAB PO SCH ×3 (01:55→20:27)
[2022-06-11 06:39] LABS: Alanine Aminotransferase 42 U/L (7-52); Albumin Globulin Ratio 1.8 (0.9-2); Albumin Level 3.7 gm/dl (3.4-5.0); Alkaline Phosphatase 67 U/L (34-104); Anion Gap 6 (3-11); Aspartate Aminotransferase 32 U/L (13-39); BUN Creatinine Ratio 15.9 (10-20); Bilirubin,Total 0.7 mg/dl (0.2-1.0); Blood Urea Nitrogen 13 mg/dl (6-23); Calcium 7.5 mg/dl (8.5-10.1); Carbon Dioxide 25 mmol/L (21-32); Chloride 105 mmol/L (98-107); Chol HDL Ratio 3.6 (0-5); Cholesterol 136 mg/dl (0-200); Creatinine Clr Calc Pharmacy 137.3 ml/min; Est GFR (African American) 119.5 ml/min; Est GFR (Non-African American) 103.1 ml/min; Globulin 2.1 gm/dl (2.5-4.0); Glucose 103 mg/dl (70-99(Fasting)); HDL Cholesterol 38 mg/dl; LDL Cholesterol Calculated 69 mg/dl; Potassium 3.8 mmol/L (3.5-5.1); Sodium 136 mmol/L (136-145); Total Protein 5.8 gm/dl (6.0-8.3); Triglycerides 144 mg/dl (0-150); VLDL Cholesterol 29 mg/dl (0-30)
[2022-06-11 06:41] LABS: Troponin I High Sensitivity < 2.3 pg/ml (0-20)
[2022-06-11] MEDS: ONDANSETRON INJ 2 MG/ML 2 ML VIAL IV PRN (08:36)
[2022-06-11] MEDS: ALFUZOSIN HCL 10 MG TAB PO SCH (08:40)
[2022-06-11] MEDS: ENALAPRIL MALEATE 10 MG TAB PO SCH (08:40)
[2022-06-11] MEDS: amLODIPine BESYLATE 5 MG TAB PO SCH (08:40)
[2022-06-11] MEDS: FLUTICASONE/VILANTEROL 100/25MCG 14 PUFFS/INHALER INH SCH (08:41)
[2022-06-11] MEDS ORDERED: PANTOprazole 40 MG TAB PO SCH (09:00)
--- NOTE | 2022-06-11 12:09 | XCELERA ---
[id number]
--- NOTE | 2022-06-11 12:38 | Electrocardiogram Report ---
Test Reason : Blood Pressure : / mmHG Vent. Rate : 088 BPM Atrial Rate : 088 BPM P-R Int : 152 ms QRS Dur : 088 ms QT Int : 366 ms P-R-T Axes : 042 -07 023 degrees QTc Int : 442 ms Normal sinus rhythm Possible Left atrial enlargement Borderline ECG When compared with ECG of 28-JAN-2021 12:24, Questionable change in QRS axis Confirmed by Johan Sierra ([id number]) on 06/11/2022 12:38:40 PM Referred By: REFERRED SELF Confirmed By:Johan Sierra
--- NOTE | 2022-06-11 12:43 | Electrocardiogram Report ---
Test Reason : Blood Pressure : / mmHG Vent. Rate : 078 BPM Atrial Rate : 078 BPM P-R Int : 154 ms QRS Dur : 086 ms QT Int : 398 ms P-R-T Axes : 057 -05 017 degrees QTc Int : 453 ms Poor data quality, interpretation may be adversely affected Normal sinus rhythm Normal ECG When compared with ECG of 10-JUN-2022 18:11, (unconfirmed) No significant change was found Confirmed by Johan Sierra ([id number]) on 06/11/2022 12:43:19 PM Referred By: REFERRED SELF Confirmed By:Johan Sierra
--- NOTE | 2022-06-11 13:54 | Cardiology Consultation ---
Date of Consultation June 11, 2022 Assessment & Plan (1) Chest pain: 2. Hypertension 3. Dyslipidemia 4. Anxiety 5. Asthma 6. Hepatic steatosis, biliary sludge Has had prolonged chest pain with undetectable HS TropI x3. Current chest symptoms are not secondary to ACS. Suspicion for underlying high risk stable CAD is also low with recent normal stress test 7 months ago. Feel can forego additional ischemic testing. Echo unchanged from prior and overall do not feel patient's presenting symptoms are cardiac in nature. Suspect some combination of GI, anxiety and musculoskeletal with partially reproducible pain on exam. Suspected possible syncopal episode potentially related to vasovagal event in the setting of pain/going to the bathroom. No significant arrhythmia on ECG/telemetry. Recommendations: No need for additional ischemic testing at this time Continue to monitor on telemetry while admitted Continue home amlodipine, enalapril and statin. Follow-up with cardiology as scheduled. History of Present Illness Attending Physician: Glynn Simmons History of Present Illness Mr. Purvis is a very pleasant 52-year-old man seen while an inpatient for chest pain and possible syncopal event. Patient known to me from the outpatient setting. Has a history of hypertension, dyslipidemia and anxiety. Also with family history of CAD last seen 10/2021. Had a normal exercise stress echo at that time (6: 47, 91% MPHR, resting EF 55%) for atypical chest pain. States that yesterday he developed right upper quadrant pain/right shoulder pain with associated nausea. Later while attempting to go to the bathroom states he must of passed out because his found him on the bathroom floor. He has no recollection of this event denies any preceding palpitations, shortness of breath or chest pain. Post event had new central/right-sided chest pressure. In ED vital stable, ECG showed sinus rhythm with no new ST changes and HS TropI undetectable x3. Biliary ultrasound showed fatty liver/fatty hepatomegaly with suspected biliary sludge, no acute cholecystitis. Since admission has continued to have central chest discomfort. Telemetry negative for significant arrhythmias. Repeat echo this morning showed unchanged biventricular function. Allergies Allergy/AdvReac Type Severity Reaction Status Date / Time No Known Allergies Allergy Unknown Verified 06/10/22 23:16 Home Medications Medication Instructions Recorded Confirmed Type albuterol sulfate 90 mcg/actuation 1 puffs inhalation Q6H PRN 04/06/19 06/10/22 History aerosol inhaler (ProAir HFA) Shortness Of Breath pantoprazole 40 mg tablet,delayed 40 mg PO QAM #90 tabs 08/15/21 06/10/22 Rx release (Protonix) ramipril 10 mg capsule (Altace) 10 mg PO QAM #90 caps 10/08/21 06/10/22 Rx atorvastatin 20 mg tablet (Lipitor) 20 mg PO HS #90 tabs 04/15/22 06/10/22 Rx alprazolam 0.5 mg tablet (Xanax) 0.5 mg PO DAILY PRN anxiety #45 04/29/22 06/10/22 Rx tabs alfuzosin 10 mg tablet,extended 10 mg PO DAILY #90 tabs 04/30/22 06/10/22 Rx release 24 hr (Uroxatral) amlodipine 5 mg tablet (Norvasc) 5 mg PO QAM #90 tabs 05/01/22 06/10/22 Rx fluticasone furoate 100 1 inh inhalation DAILY #60 ea 05/07/22 06/10/22 Rx mcg-vilanterol 25 mcg/dose inhalation powder (Breo Ellipta) silodosin 8 mg capsule (Rapaflo) 8 mg PO DAILY #30 caps 06/04/22 06/10/22 Rx fluvoxamine 50 mg tablet 50 mg PO BID 06/10/22 06/10/22 History Patient History Medical History (Updated 06/10/22 @ 23:08 by Estiven Hernandez MD) Abdominal pain Anxiety disorder, unspecified Asthma well controlled COVID Encounter for pre-operative examination Essential (primary) hypertension Gastroesophageal reflux disease Hepatic steatosis History of COVID-25 January 2021, treated at [facility] Emergency Room. symptoms: 103 fever, +sob and severe cough, fatigue and weakness. Hyperlipidemia Obsessive compulsive disorder Rectal bleeding Trigger thumb, left thumb Surgical History H/O knee surgery right knee H/O repair of rotator cuff left H/O vasectomy Family History Mother Anxiety Father Heart disease Myocardial infarction Hypertension Hearing loss Sister Anxiety Grandmother (Maternal) Bone cancer Leukemia Denies family history of Ovarian cancer Prostate cancer Breast cancer Colorectal cancer Stroke Social History Smoking Status: Never smoker Second Hand Exposure: No; Hx Alcohol Use: Yes Alcohol type: beer Hx Substance Use: No Preferred Language: Honduran Communication Ability: Effective Visual Impairment: Limited Hearing Ability: Normal 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: No Beliefs That Will Affect Care: None marital status: Current Living Situation: Spouse and Family Current Living Situation Comment: lives with and son current occupational status: employed How many Children do You have: 1 Other Information That Helps Us Care for You: No Feels Safe at Home: Yes Safety Concerns: Feels Safe At This Time Childhood Exposure to Second-Hand Smoke: No caffeine: Yes Dental Care, Regularly: Yes Physical Activity Frequency: Does not Exercise Seatbelt Use: always Sunscreen Use: Yes Assistive Devices: None Review of Systems Review of Systems: All systems reviewed & are unremarkable except as noted in HPI & below Physical Exam Physical Exam: General: Comfortable HEENT: Sclerae anicteric Lungs: Clear to auscultation bilaterally, no crackles or wheezes Cardiac: Regular rate and rhythm, no murmurs. Mild tenderness to palpation over sternum Vascular: 2+ radial, DP pulses. No bruits Abdomen: Soft, tender over right upper quadrant Extremities: Well perfused, no peripheral edema Neuro: Nonfocal Psych: Alert orient x3, normal affect and mood Results & Data ([facility]) Vital Signs (Past 12 Hours) Vital Signs Temp Pulse Pulse Resp BP Pulse Ox O2 Del Method 06/11/22 11:19 98.1 F 59 L 18 115/76 93 Room Air 06/11/22 07:52 98.2 F 77 18 127/85 95 Room Air 06/11/22 07:30 80 06/11/22 04:35 67 06/11/22 03:53 98.4 F 70 18 130/70 98 Room Air PG Care Time/CCT Total # of Minutes Spent Total Time Spent with Patient: Total time spent is greater than 50% in coordination of care (as documented) at patient's floor/unit and/or counseling patient: Coding Level of Care Code 33526 Office/OBS Consult Lvl 4 Diagnoses Chest pain R07.9
[2022-06-11] MEDS ORDERED: FAMOTIDINE 20 MG in SYRINGE 3 ML IV ONE (14:47)
[2022-06-11] MEDS ORDERED: SUCRALFATE 1 GM/10 ML UDC PO STA (14:47)
[2022-06-11 17:39] LABS: C Reactive Protein 0.78 mg/dl (0-0.5)
[2022-06-11] MEDS: PANTOprazole 40 MG in SYRINGE 0 ML IV SCH (20:26)
--- NOTE | 2022-06-11 20:26 | Hospitalist Progress Note ---
Date of Service June 11, 2022 Assessment & Plan (1) Abdominal pain: Plan: he did gain relief of this pain with carafate + pepcid. this suggests possible upper GI tract etiology such as gastritis, PUD, etc. change PO PPI to IV and give twice daily. add carafate QID. LFTs, lipase remain wnl. CRP scantly above normal range. no fevers. although gall bladder u/s shows sludge there are no other findings to suggest acute cholecystitis. HIDA scan ordered for the AM. Consulted [facility] -- if HIDA scan is negative .... EGD? CT abd/pelvis? other? repeat CMP in am. NPO at midnight for his HIDA in am. await GI eval in am as well. (2) Chest pain: Plan: constant, mid-sternal / sternal-costal junction. trops negative. tele normal. stress echo wnl. cardiology eval appreciated - cardiac etiology of his pain not suspected. d-dimer wnl. no dyspnea or other pulmonary symptoms thus PE not suspected. due to esophageal issue? due to costochondritis? other? HIDA In am. GI consultation in am. consider NSAIDs - topically or PO - for ? costochondritis. (3) Gastroesophageal reflux disease: Plan: see #1 above increase PPI to twice daily added carafate GI consult requested (4) Essential (primary) hypertension: Plan: Continue home Amlodipine and PAUL (5) Hyperlipidemia: Plan: Continue home statin. LDL today 69 on lipid profile. (6) Hepatic steatosis: Plan: needs weight loss and should follow with GI for such (7) Unspecified asthma, uncomplicated: Plan: no exacerbation at this time lungs clear, no wheezing, no respiratory symptoms (8) Lower urinary tract symptoms (LUTS): Plan: Continue home Alfuzosin and Silodosin (9) Anxiety disorder, unspecified: Plan: Continue home Fluvoxamine Plan DVT proph - lovenox cont IV Fluids Admission and Anticipated Discharge Date Admission Date: June 10, 2022 Subjective saw patient following his stress echo this returned negative cardiology evaluated him and felt symptoms were not cardiac in origin patient states he continues with sternal chest pain he also has high epigastric abdominal pain - midline, and slightly to the right as well pain radiates to his right shoulder blade region the pain has been constant - nothing has helped it since admission he has little appetite denies orthopnea denies pleuritic pain denies recent travel denies sick contacts after my visit I gave him a STAT dose of carafate and a STAT dose of IV pepcid he reports the chest discomfort is still there but the upper abdominal pain is improved tele overnight wnl Review of Systems Review of Systems: gen - no fevers; no chills cv - chest pain - does not radiate from the sternum; no orthopnea pulm - no cough GI - has had nausea but no vomiting; no diarrhea - no LUTS Physical Exam Physical Exam: gen - obese, NAD mouth - MMM neck - no JVD heart - RRR, s1 s2, no murmur or rub chest wall - tender to palpation over sternal-costal junction low chest; states the pain induced is the pain he has been feeling in this region abd - tender to palpation high epigastric region; slight discomfort over medial portion of the RUQ; no pain other quadrants; BS+; no HSM; soft, no peritoneal signs ext - no edema, pulses 2+ b/l Results & Data Results & Data ([facility]) Vital Signs (Past 12 Hours) Vital Signs Temp Pulse Pulse Resp BP BP Pulse Ox 06/11/22 18:38 36.6 C 63 18 144/84 H 94 06/11/22 16:14 80 06/11/22 15:34 36.9 C 63 20 127/81 93 06/11/22 11:19 36.7 C 59 L 18 115/76 93 O2 Del Method 06/11/22 18:38 Room Air 06/11/22 16:14 06/11/22 15:34 Room Air 06/11/22 11:19 Room Air Laboratory Results Laboratory Results - last 24 hr 06/10/22 06/11/22 06/11/22 22:59 06:00 06:00 Sodium 136 Potassium 3.8 Chloride 105 Carbon Dioxide 25 Anion Gap 6 BUN 13 Creatinine 0.82 Est Cr Clr Drug Dosing 137.3 Est GFR ( Amer) 119.5 Est GFR (Non-Af Amer) 103.1 BUN/Creatinine Ratio 15.9 Glucose 103 H Calcium 7.5 L Magnesium 2.0 Total Bilirubin 0.7 AST 32 ALT 42 Alkaline Phosphatase 67 Troponin I High Sens < 2.3 < 2.3 C-Reactive Protein 0.78 H Total Protein 5.8 L Albumin 3.7 Globulin 2.1 L Albumin/Globulin Ratio 1.8 Triglycerides 144 Cholesterol 136 LDL Cholesterol, Calc 69 VLDL Cholesterol, Calc 29 HDL Cholesterol 38 Cholesterol/HDL Ratio 3.6 Lipase 16 24 PG Care Time/CCT Total # of Minutes Spent Total Time Spent with Patient: Total time spent is greater than 50% in coordination of care (as documented) at patient's floor/unit and/or counseling patient: Coding Level of Care Code 06727 Subseq Obs Care Lvl 3 Diagnoses Abdominal pain R10.9 Chest pain R07.9 Gastroesophageal reflux disease K21.9 Essential (primary) hypertension I10 Hyperlipidemia E78.00 Hyperlipidemia type: pure hypercholesterolemia Hepatic steatosis K76.0 Unspecified asthma, uncomplicated J45.909 Lower urinary tract symptoms (LUTS) R39.9 Anxiety disorder, unspecified F41.9 (1) Hyperlipidemia Hyperlipidemia type: pure hypercholesterolemia Qualified Code(s): E78.00 - Pure hypercholesterolemia, unspecified
[2022-06-11] MEDS: ATORVASTATIN 20 MG TAB PO SCH (20:28)
[2022-06-11] MEDS: SUCRALFATE 1 GM/10 ML UDC PO SCH (20:31)
--- NOTE | 2022-06-12 06:10 | Billing Data ---
Date of Service June 12, 2022 Coding Level of Care Code 19411 INT INP/OBS CARE
[2022-06-12] MEDS: SODIUM CHLORIDE 0.9% 1000ML 1,000 ML IV SCH (07:08)
[2022-06-12 07:23] LABS: Basophils # (auto) 0.02 K/uL (0-0.2); Basophils % (auto) 0.6 %; Eosinophils # (auto) 0.16 K/uL (0-0.50); Eosinophils % (auto) 4.5 %; Hematocrit (blood only) 41.1 % (40.1-51.0); Hemoglobin 13.9 g/dl (14.0-18.0); Immature Granulocytes # (auto) 0.01 K/uL (0.00-0.02); Immature Granulocytes % (auto) 0.3 %; Lymphocytes # (auto) 0.96 K/uL (1.2-3.4); Lymphocytes % (auto) 26.8 %; Mean Corpuscular Hemoglobin 30.3 pg (25.0-34.0); Mean Corpuscular Hgb Conc 33.8 g/dL (32.0-36.0); Mean Corpuscular Volume 89.7 fL (80.0-100.0); Mean Platelet Volume 10.1 fL (9.4-12.4); Monocytes # (auto) 0.44 K/uL (0.24-0.82); Monocytes % (auto) 12.3 %; Neutrophils # (auto) 1.99 K/uL (1.4-6.5); Neutrophils % (auto) 55.5 %; Platelet Count 156 K/uL (130-400); RDW Coefficient of Variation 12.8 % (11.5-14.5); RDW Standard Deviation 41.6 fL (36.4-46.3); Red Blood Count 4.58 M/uL (4.63-6.08); White Blood Count 3.58 K/ul (4.8-10.8)
[2022-06-12 07:52] LABS: Albumin Globulin Ratio 1.7 (0.9-2); Albumin Level 3.9 gm/dl (3.4-5.0); BUN Creatinine Ratio 8.4 (10-20); Bilirubin,Total 0.8 mg/dl (0.2-1.0); Calcium 8.2 mg/dl (8.5-10.1); Creatinine Clr Calc Pharmacy 119.1 ml/min; Est GFR (African American) 107.7 ml/min; Globulin 2.3 gm/dl (2.5-4.0); Potassium 3.8 mmol/L (3.5-5.1); Total Protein 6.2 gm/dl (6.0-8.3)
[2022-06-12] MEDS: PANTOprazole 40 MG in SYRINGE 0 ML IV SCH (08:40)
[2022-06-12] MEDS: fluvoxaMINE MALEATE 50 MG TAB PO SCH ×2 (08:41→20:38)
[2022-06-12] MEDS: ENOXAPARIN INJ 40 MG/0.4 ML SYR SQ SCH ×2 (08:41→20:37)
[2022-06-12] MEDS: FLUTICASONE/VILANTEROL 100/25MCG 14 PUFFS/INHALER INH SCH (08:41)
[2022-06-12] MEDS: ALFUZOSIN HCL 10 MG TAB PO SCH (08:41)
[2022-06-12] MEDS: ENALAPRIL MALEATE 10 MG TAB PO SCH (08:42)
[2022-06-12] MEDS: SUCRALFATE 1 GM/10 ML UDC PO SCH ×4 (08:42→20:38)
[2022-06-12] MEDS: amLODIPine BESYLATE 5 MG TAB PO SCH (08:42)
--- NOTE | 2022-06-12 09:38 | Gastrointestinal Consultation ---
Date of Consultation June 12, 2022 Assessment & Plan (1) Chest pain: -HIDA pending from this AM. I did speak with nuclear med to attempt to switch this to including EF, however the test was completed already. If no findings, may need to consider obtaining repeat with EF. We also discussed the possibility of need an outpatient EGD as well. -Celiac panel -Protonix 40 mg BID -Famotidine 20 mg BID -Carafate 1 gm four times daily before meals and bedtime. Supervising Physician Co-Signing Physician Notes I agree with the findings as documented by VICTOR HUGO Pickard normal HIDA scan. History of Present Illness Reason for Consultation: "epigastric pain; GB? gastritis? other?" Attending Physician: Glynn Simmons History of Present Illness Patient is a 52 yo male with PMH of hearing loss, trigger finger, obesity, HSV, GERD, STEFANY, HTN, HLD, & OCD who presented to [facility] with complaints of substernal chest pressure with associated SOB, nausea, diaphoresis, & syncope. He tried Pepto-Bismol and had no improvement of his pain. He presented to the ED where he was noted to be hemodynamically stable, EKG x 2 unremarkable, & negative troponins. He has followed with cardiology due to his history of episodic chest pain and had a normal stress echo on 10/2021. US gallbladder showed sludge, hepatomegaly & hepatic steatosis. Cardiology evaluated this admission and felt that this was some combination of GI, anxiety and musculoskeletal with partially reproducible pain on exam. They also suspected possible syncopal episode potentially related to vasovagal event. He notes that for months he has been unable to eat fatty food without getting nauseous and experiencing abdominal pain. H/H 13.9/41.1. AST 56, ALT 71. T Bili unremarkable. GI has been consulted for further recommendations. Allergies Allergy/AdvReac Type Severity Reaction Status Date / Time No Known Allergies Allergy Unknown Verified 06/10/22 23:16 Home Medications Medication Instructions Recorded Confirmed Type albuterol sulfate 90 mcg/actuation 1 puffs inhalation Q6H PRN 04/06/19 06/10/22 History aerosol inhaler (ProAir HFA) Shortness Of Breath pantoprazole 40 mg tablet,delayed 40 mg PO QAM #90 tabs 08/15/21 06/10/22 Rx release (Protonix) ramipril 10 mg capsule (Altace) 10 mg PO QAM #90 caps 10/08/21 06/10/22 Rx atorvastatin 20 mg tablet (Lipitor) 20 mg PO HS #90 tabs 04/15/22 06/10/22 Rx alprazolam 0.5 mg tablet (Xanax) 0.5 mg PO DAILY PRN anxiety #45 04/29/22 06/10/22 Rx tabs alfuzosin 10 mg tablet,extended 10 mg PO DAILY #90 tabs 04/30/22 06/10/22 Rx release 24 hr (Uroxatral) amlodipine 5 mg tablet (Norvasc) 5 mg PO QAM #90 tabs 05/01/22 06/10/22 Rx fluticasone furoate 100 1 inh inhalation DAILY #60 ea 05/07/22 06/10/22 Rx mcg-vilanterol 25 mcg/dose inhalation powder (Breo Ellipta) silodosin 8 mg capsule (Rapaflo) 8 mg PO DAILY #30 caps 06/04/22 06/10/22 Rx fluvoxamine 50 mg tablet 50 mg PO BID 06/10/22 06/10/22 History Patient History Medical History Abdominal pain Anxiety disorder, unspecified Asthma well controlled COVID Encounter for pre-operative examination Essential (primary) hypertension Gastroesophageal reflux disease Hepatic steatosis History of COVID-25 January 2021, treated at [facility] Emergency Room. symptoms: 103 fever, +sob and severe cough, fatigue and weakness. Hyperlipidemia Obsessive compulsive disorder Rectal bleeding Trigger thumb, left thumb Surgical History H/O knee surgery right knee H/O repair of rotator cuff left H/O vasectomy Family History Mother Anxiety Father Heart disease Myocardial infarction Hypertension Hearing loss Sister Anxiety Grandmother (Maternal) Bone cancer Leukemia Denies family history of Ovarian cancer Prostate cancer Breast cancer Colorectal cancer Stroke Social History Smoking Status: Never smoker Second Hand Exposure: No; Hx Alcohol Use: Yes Alcohol type: beer Hx Substance Use: No Preferred Language: Congolese Communication Ability: Effective Visual Impairment: Limited Hearing Ability: Normal Foreman/Pile Driving And Erection Required: No Beliefs That Will Affect Care: None marital status: Current Living Situation: Spouse and Family Current Living Situation Comment: lives with and son current occupational status: employed How many Children do You have: 1 Other Information That Helps Us Care for You: No Feels Safe at Home: Yes Safety Concerns: Feels Safe At This Time Childhood Exposure to Second-Hand Smoke: No caffeine: Yes Dental Care, Regularly: Yes Physical Activity Frequency: Does not Exercise Seatbelt Use: always Sunscreen Use: Yes Assistive Devices: None Review of Systems Constitutional: no fever and no chills Respiratory: no cough and no dyspnea Cardiovascular: + chest pain Gastrointestinal: no dysphagia, no change in bowel habits, no constipation, no diarrhea/loose stools, no blood in stools and no melena Physical Exam Constitutional: well developed Respiratory: normal respiratory effort Cardiovascular: Rate/Rhythm: regular rate Gastrointestinal (Abdomen): Inspection/Auscultation: abdomen normal to inspection Percussion/Palpation: abdomen soft; abdomen nontender Musculoskeletal: Head/Neck/Chest: normocephalic Psychiatric: Orientation: alert and oriented x 3 Results & Data ([facility]) Vital Signs (Past 12 Hours) Vital Signs Temp Pulse Pulse Resp BP Pulse Ox O2 Del Method 06/12/22 05:59 51 L 06/12/22 07:00 36.8 C 70 18 124/83 93 Room Air 06/12/22 03:26 37 C 63 20 124/76 92 Room Air 06/11/22 22:00 64 06/11/22 22:27 37.5 C 75 20 131/86 93 Room Air PG Care Time/CCT Total # of Minutes Spent Total Time Spent with Patient: Total time spent is greater than 50% in coordination of care (as documented) at patient's floor/unit and/or counseling patient: Coding Level of Care Code INP/OBS CONSULT LVL 4, 60 MIN Diagnoses Chest pain R07.9
--- NOTE | 2022-06-12 11:13 | Nuclear Medicine Report ---
NUCLEAR MEDICINE HEPATOBILIARY SCAN CLINICAL HISTORY: Right upper quadrant pain. Nausea. Gallbladder sludge on ultrasound. COMPARISON: CT of the abdomen and pelvis March 27, 2021 and right upper quadrant ultrasound Januar 2022. TECHNIQUE: 5.3 mCi of technetium 99m Choletec IV was injected at 9:32 AM on June 12, 2022. Immedi ately following injection, imaging of the abdomen was carried out for 60 minutes in the anterior proj ection. FINDINGS: Hepatic uptake of radiotracer is prompt and homogeneous. Activity is identified within the gallbladder and common bile duct at 10 minutes. Small bowel activity is noted at 20 minutes. IMPRESSION: Normal hepatobiliary scan. No evidence for acute or chronic cholecystitis. ACT 112: Negative or not required by law. Electronically signed by: José Antonio Ramos M.D. 06/12/2022 11:12 AM
[2022-06-12] MEDS: ONDANSETRON INJ 2 MG/ML 2 ML VIAL IV PRN (13:49)
[2022-06-12] MEDS ORDERED: OPTIRAY 320 500ml IV ONE (15:51)
--- NOTE | 2022-06-12 16:10 | CT Scan Report ---
CT angio chest PE protocol CLINICAL HISTORY: pleuritic chest pain TECHNIQUE: Multidetector row helical CT of the chest was performed with angiographic protocol. Donis l and sagittal reformations were obtained. Coronal and sagittal MIPS were obtained from the axial arianne a set and were submitted for review. Automated dose lowering techniques and/or adjustment according to patient size were utilized for this exam. Comparison: Comparison is made to CT chest 11/15/2012 FINDINGS: Lungs and pleura: Atelectasis versus scarring is seen in the dependent portions of the lungs. Heart and pericardium: Heart size is normal. No pericardial effusion. Vessels: No evidence of pulmonary embolism. Mediastinum and theodora: Subcentimeter lymph nodes are seen. Chest wall and lower neck: Unremarkable. Abdomen: Unremarkable. Bones: Degenerative changes in the thoracic spine. IMPRESSION: 1. No evidence of pulmonary embolism. 2. Mild atelectasis versus scarring is seen in the lower lungs. ACT 112: Negative or not required by law. Electronically signed by: Pacheco Baltazar M.D. 06/12/2022 4:08 PM
--- NOTE | 2022-06-12 16:28 | CT Scan Report ---
ABDOMEN AND PELVIS CT WITH IV CONTRAST CT DOSE: 2340.07 mGy.cm HISTORY: Acute upper abdominal pain lower sternal pain/upper abd pain; cholecystitis? TECHNIQUE: Multiaxial CT images of the abdomen and pelvis were performed following the IV administrat ion of 107 cc of Optiray, A dose lowering technique was utilized adhering to the principles of ALARA . COMPARISON STUDY: CTA chest of same day, CT abdomen and pelvis 03/27/2021 FINDINGS: Coronary artery calcifications. Mild subsegmental bibasilar atelectasis. No pneumatosis or pneumoperitoneum. The spleen is enlarged, 16 cm. Unremarkable pancreas, gallbladder and adrenal gland s. Hepatic steatosis. Patency of the hepatic and portal veins. Unremarkable kidneys. No hydronephrosis. Prostate is upper limits of normal in size. Partial distenti on of the urinary bladder. There is no abdominal aortic aneurysm or lymphadenopathy identified. Mildl y prominent periportal and precaval lymph nodes measure up to 8-9 mm. These are likely reactive. No b owel obstruction or bowel wall thickening. No ascites or mesenteric inflammation. Hyperdense material is noted within the proximal appendix, possibly retained enteric contrast or less likely an appendic olith. Unremarkable soft tissues. No acute fracture identified. IMPRESSION: 1. No acute intra-abdominal or intrapelvic abnormality. 2. No bowel obstruction or bowel wall thickening. 3. Hepatic steatosis. 4. Splenomegaly. ACT 112: Negative or not required by law. The above report was generated using voice recognition software. It may contain grammatical, syntax o r spelling errors. Electronically signed by: Jameel Kong M.D. 06/12/2022 4:27 PM
[2022-06-12] MEDS: ATORVASTATIN 20 MG TAB PO SCH (20:38)
[2022-06-12] MEDS: PANTOprazole 40 MG TAB PO SCH (20:39)
--- NOTE | 2022-06-12 20:47 | Hospitalist Progress Note ---
Date of Service June 12, 2022 Assessment & Plan (1) Abdominal pain: Plan: RUQ u/s - gall bladder sludge only; CBD wnl. No other findings to suggest acute cholecystitis. HIDA scan - negative for cystic duct obstruction or other abnormalities. CT abd/pelvis obtained this afternoon - gall bladder, pancreas wnl. Mild splenomegaly, fatty liver, a few small lymph nodes seen. remains on PPI twice daily + carafate qid. lipase wnl. ast/alt mildly high today. etiology? would be in favor of watching overnight for recurrent symptoms. if symptoms recur -- EGD by GI? I do appreciate GI consult. could everything be viral in etiology ? (splenomegaly, mild elevation ast/alt, mild lymphadenopathy intra-abdominally, etc) re-eval tomorrow repeat ast/alt in am (2) Chest pain: Plan: stress echo wnl. EKG wnl. crp scantly elevated - doubt pericarditis. CTA chest without PE or acute findings. likely musculoskeletal. try voltaren gel 4gm qid. (3) Gastroesophageal reflux disease: Plan: see #1 above increased PPI to twice daily added carafate GI consult appreciated (4) Essential (primary) hypertension: Plan: Continue home Amlodipine and PAUL (5) Hyperlipidemia: Plan: Continue home statin. LDL 69 on lipid profile. (6) Hepatic steatosis: Plan: needs weight loss and should follow with GI for such splenomegaly - 2nd to fatty liver? 2nd to viral process? (7) Unspecified asthma, uncomplicated: Plan: no exacerbation at this time lungs clear, no wheezing, no respiratory symptoms CTA chest negative (8) Lower urinary tract symptoms (LUTS): Plan: Continue home Alfuzosin and Silodosin (9) Anxiety disorder, unspecified: Plan: Continue home Fluvoxamine (10) Splenomegaly: Plan: etiology? if acute - viral ? tick-borne? other? if chronic - 2nd to fatty liver? other? will need f/u for this. platelets wnl. (11) Elevated LFTs: Plan: acute - just started today. etiology? reactive to a viral process? although GB sludge was seen on RUQ u/s his CT a/p and HIDA both without acute findings of GB. repeat LFTs wnl. check anaplasmosis smear. check monospot. lipase wnl x 2. Plan DVT proph - lovenox stop IV fluids change observation to full admit Admission and Anticipated Discharge Date Admission Date: June 12, 2022 Subjective tele overnight wnl he continues with pleuritic chest wall pain and upper abd pain after his HIDA scan he was given a diet about 1 hour following lunch he had nausea with mild upper abd discomfort seen by GI - no EGD planned as of yet this evening following dinner he did not have nausea/abd pain like previous we did obtain CT abd/pelvis/chest after lunch due to refractory chest / GI symptoms - no findings to explain his symptoms although mild splenomegaly and lymphadenopathy seen Review of Systems 2 Review of Systems: gen - no fevers, no chills cv - ongoing pleuritic CP central chest without radiation; no orthopnea pulm - no cough, no dyspnea GI - no vomiting or diarrhea - no LUTS musculo - no myalgias Physical Exam Physical Exam: gen - obese, NAD, sitting in chair comfortably mouth - MMM neck - no JVD heart - RRR, s1 s2, no murmur or rub chest wall - ongoing tenderness to palpation over sternal-costal junction low chest abd - tender to palpation high epigastric region; slight discomfort over medial portion of the RUQ; no pain other quadrants; BS+; soft, no peritoneal signs ext - no edema, pulses 2+ b/l skin - no rash psych - a/o x 3 Results & Data Results & [facility] ([facility]) Vital Signs (Past 12 Hours) Vital Signs Temp Pulse Pulse Resp BP BP Pulse Ox 06/12/22 19:53 37.4 C 81 20 126/85 92 06/12/22 14:03 89 06/12/22 14:43 37.2 C 84 18 128/81 92 06/12/22 11:48 79 18 130/76 97 O2 Del Method 06/12/22 19:53 Room Air 06/12/22 14:03 06/12/22 14:43 Room Air 06/12/22 11:48 Room Air Laboratory Results Laboratory Results - last 24 hr 06/12/22 06/12/22 06:44 06:44 WBC 3.58 L RBC 4.58 L Hgb 13.9 L Hct 41.1 MCV 89.7 MCH 30.3 MCHC 33.8 RDW Std Deviation 41.6 RDW Coeff of Frank 12.8 Plt Count 156 MPV 10.1 Immature Gran % (Auto) 0.3 Neut % (Auto) 55.5 Lymph % (Auto) 26.8 [place] % (Auto) 12.3 Eos % (Auto) 4.5 Baso % (Auto) 0.6 Neut # (Auto) 1.99 Lymph # (Auto) 0.96 L [place] # (Auto) 0.44 Eos # (Auto) 0.16 Baso # (Auto) 0.02 Immature Gran # (Auto) 0.01 Sodium 138 Potassium 3.8 Chloride 106 Carbon Dioxide 27 Anion Gap 5 BUN 8 Creatinine 0.95 Est Cr Clr Drug Dosing 119.1 Est GFR ( Amer) 107.7 Est GFR (Non-Af Amer) 93.0 BUN/Creatinine Ratio 8.4 L Glucose 95 Calcium 8.2 L Total Bilirubin 0.8 AST 56 H ALT 71 H Alkaline Phosphatase 69 Total Protein 6.2 Albumin 3.9 Globulin 2.3 L Albumin/Globulin Ratio 1.7 PG Care Time/CCT Total # of Minutes Spent Total Time Spent with Patient: Total time spent is greater than 50% in coordination of care (as documented) at patient's floor/unit and/or counseling patient: Coding Level of Care Code 61910 SUB INP/OBS CARE 3/50MIN Diagnoses Abdominal pain R10.9 Chest pain R07.9 Gastroesophageal reflux disease K21.9 Essential (primary) hypertension I10 Hyperlipidemia E78.00 Hyperlipidemia type: pure hypercholesterolemia Hepatic steatosis K76.0 Unspecified asthma, uncomplicated J45.909 Lower urinary tract symptoms (LUTS) R39.9 Anxiety disorder, unspecified F41.9 Splenomegaly R16.1 Elevated LFTs R79.89 (1) Hyperlipidemia Hyperlipidemia type: pure hypercholesterolemia Qualified Code(s): E78.00 - Pure hypercholesterolemia, unspecified
[2022-06-12] MEDS ORDERED: ALPRAZolam 0.5 MG TABLET PO PRN (20:48)
[2022-06-13 07:35] LABS: Basophils # (auto) 0.02 K/uL (0-0.2); Basophils % (auto) 0.5 %; Eosinophils # (auto) 0.16 K/uL (0-0.50); Eosinophils % (auto) 4.4 %; Hematocrit (blood only) 43.8 % (40.1-51.0); Hemoglobin 14.7 g/dl (14.0-18.0); Immature Granulocytes # (auto) 0.02 K/uL (0.00-0.02); Immature Granulocytes % (auto) 0.5 %; Lymphocytes # (auto) 1.01 K/uL (1.2-3.4); Lymphocytes % (auto) 27.7 %; Mean Corpuscular Hgb Conc 33.6 g/dL (32.0-36.0); Mean Corpuscular Volume 89.4 fL (80.0-100.0); Mean Platelet Volume 9.9 fL (9.4-12.4); Monocytes # (auto) 0.43 K/uL (0.24-0.82); Monocytes % (auto) 11.8 %; Neutrophils % (auto) 55.1 %; Platelet Count 161 K/uL (130-400); RDW Coefficient of Variation 12.6 % (11.5-14.5); RDW Standard Deviation 41.2 fL (36.4-46.3); White Blood Count 3.64 K/ul (4.8-10.8)
[2022-06-13 07:53] LABS: Albumin Globulin Ratio 1.7 (0.9-2); Albumin Level 4.2 gm/dl (3.4-5.0); BUN Creatinine Ratio 10.9 (10-20); Bilirubin,Total 0.8 mg/dl (0.2-1.0); Calcium 8.9 mg/dl (8.5-10.1); Creatinine Clr Calc Pharmacy 102.1 ml/min; Est GFR (African American) 90.2 ml/min; Est GFR (Non-African American) 77.9 ml/min; Globulin 2.5 gm/dl (2.5-4.0); Potassium 4.1 mmol/L (3.5-5.1); Total Protein 6.7 gm/dl (6.0-8.3)
[2022-06-13] MEDS: ENOXAPARIN INJ 40 MG/0.4 ML SYR SQ SCH (08:00)
[2022-06-13] MEDS: FLUTICASONE/VILANTEROL 100/25MCG 14 PUFFS/INHALER INH SCH (08:02)
[2022-06-13] MEDS: DICLOFENAC SOD 1% GEL 100 GM TUBE EXT SCH ×2 (08:02→12:15)
[2022-06-13] MEDS: fluvoxaMINE MALEATE 50 MG TAB PO SCH (08:02)
[2022-06-13] MEDS: SUCRALFATE 1 GM/10 ML UDC PO SCH ×2 (08:03→12:15)
[2022-06-13] MEDS: amLODIPine BESYLATE 5 MG TAB PO SCH (08:03)
[2022-06-13] MEDS: ALFUZOSIN HCL 10 MG TAB PO SCH (08:03)
[2022-06-13] MEDS: ENALAPRIL MALEATE 10 MG TAB PO SCH (10:42)
[2022-06-13] MEDS: PANTOprazole 40 MG TAB PO SCH (10:42)
--- NOTE | 2022-06-13 12:08 | Discharge Summary ---
Date of Service date of admission - June 10, 2022 date of discharge - June 13, 2022 Admission HPI Per Admitting Provider Toro Purvis is a 52yo male with PMHx significant for HTN, dyslipidemia, obesity (BMI 38.7), GERD, BPH with LUTS, asthma, anxiety and family h/o CAD (father had multiple stents in his 40s) who presented to [facility] ED on 06/10 for substernal chest pressure with associated SOB, nausea, diaphoresis and syncopal episode earlier today without head trauma. Patient took Pepto-Bismol without improvement in pain and also took Aspirin 324mg PO before coming to ED. Of note patient follows with [facility] due to past episodes of chest pain. He had normal stress echo in 10/2021. In the ED the patient was afebrile and hemodynamically stable on room air. EKG x2 both with NSR without ST/T abnormalities, and hsTroponin negative x1. CBC/CMP/coags WNL. D-dimer 380. COVID/flu/RSV negative. CXR unremarkable and US gallbladder showing suspected biliary sludge without gallstones or evidence of cholecystitis; also with hepatomegaly and severe hepatic steatosis. In the ED the patient was given Zofran 4mg IV x2, Dilaudid 0.5mg IV x2 and NSS 500cc bolus. Was also started on maintenance NSS @125cc/hr. Principal Diagnosis 1. chest pain 2. abdominal pain 3. gall bladder sludge 4. splenomegaly 5. transaminitis 6. GERD 7. fatty liver Discharge Exam gen - obese, NAD, sitting in chair comfortably, looks good mouth - MMM neck - no JVD heart - RRR, s1 s2, no murmur or rub chest wall - minimal tenderness to palpation over sternal-costal junction low chest abd - soft, NT, ND, BS+, no HSM ext - no edema, pulses 2+ b/l skin - no rash psych - a/o x 3 Discharge Data Allergies Allergy/AdvReac Type Severity Reaction Status Date / Time No Known Allergies Allergy Unknown Verified 06/20/22 10:20 Consultations [facility] Procedures Performed Echocardiogram: * normal LV size and wall thickness * EF 60-65% * no regional wall motion abnormalities * mildly dilated RV with normal function * no significant valvular pathology * normal CVP Ordered Studies Chest X-Ray 06/10/22 18:26 SINGLE VIEW CHEST CLINICAL HISTORY: Atypical chest pain FINDINGS: An AP, portable, upright chest radiograph is compared to study dated 01/28/2021 and correlated with chest CT dated 11/15/2012. The examination is degraded by portable technique and apical lordotic positioning. The cardiomediastinal silhouette is unremarkable. The lungs and pleural spaces are clear. No pneumothorax is seen. The bony thorax is grossly intact. IMPRESSION: No active disease in the chest. ACT 112: Negative or not required by law. Electronically signed by: Semaj Talbot M.D. 06/10/2022 6:57 PM Gallbladder Ultrasound 06/10/22 19:26 ULTRASOUND RIGHT UPPER QUADRANT ABDOMEN CLINICAL HISTORY: Nausea. Right upper quadrant abdominal pain. COMPARISON STUDY: Abdominal CT dated 03/27/2021 TECHNIQUE: Real-time, grayscale, and color flow sonography of the right upper quadrant of the abdomen was performed. Images are reviewed in the transverse and longitudinal planes. FINDINGS: Liver: The liver is enlarged and demonstrates heterogeneously increased echotexture indicating severe steatosis. Note that this degrades acoustic penetration of the liver. Fatty sparing is seen adjacent to gallbladder fossa. There is no intrahepatic biliary ductal dilatation. The main portal vein is patent. Gallbladder: Biliary sludge is suspected. There are no shadowing gallstones identified. There is no gallbladder wall thickening or pericholecystic fluid. A sonographic Paulino's sign is reportedly absent. The common bile duct measures up to 0.5 cm in diameter. Pancreas: Not visualized due to overlying bowel gas. Right kidney: Survey images of the right kidney demonstrate normal size and echotexture. There is no hydronephrosis. Ascites: None. IMPRESSION: 1. Hepatomegaly and severe hepatic steatosis. 2. Suspect biliary sludge. No shadowing gallstones are identified and there is no sonographic evidence of acute cholecystitis. 3. Nonvisualization of the pancreas. ACT 112: Negative or not required by law. Electronically signed by: Semaj Talbot M.D. 06/10/2022 8:43 PM Abdomen/Pelvis CT 06/12/22 14:[address] WITH IV CONTRAST CT DOSE: 2340.07 mGy.cm HISTORY: Acute upper abdominal pain lower sternal pain/upper abd pain; cholecystitis? TECHNIQUE: Multiaxial CT images of the abdomen and pelvis were performed following the IV administration of 107 cc of Optiray, A dose lowering technique was utilized adhering to the principles of ALARA. COMPARISON STUDY: CTA chest of same day, CT abdomen and pelvis 03/27/2021 FINDINGS: Coronary artery calcifications. Mild subsegmental bibasilar atelectasis. No pneumatosis or pneumoperitoneum. The spleen is enlarged, 16 cm. Unremarkable pancreas, gallbladder and adrenal glands. Hepatic steatosis. Patency of the hepatic and portal veins. Unremarkable kidneys. No hydronephrosis. Prostate is upper limits of normal in size. Partial distention of the urinary bladder. There is no abdominal aortic aneurysm or lymphadenopathy identified. Mildly prominent periportal and precaval lymph nodes measure up to 8-9 mm. These are likely reactive. No bowel obstruc tion or bowel wall thickening. No ascites or mesenteric inflammation. Hyperdense material is noted within the proximal appendix, possibly retained enteric contrast or less likely an appendicolith. Unremarkable soft tissues. No acute fracture identified. IMPRESSION: 1. No acute intra-abdominal or intrapelvic abnormality. 2. No bowel obstruction or bowel wall thickening. 3. Hepatic steatosis. 4. Splenomegaly. ACT 112: Negative or not required by law. The above report was generated using voice recognition software. It may contain grammatical, syntax or spelling errors. Electronically signed by: Jameel Kogn M.D. 06/12/2022 4:27 PM Chest CTA 06/12/22 14:21 CT angio chest PE protocol CLINICAL HISTORY: pleuritic chest pain TECHNIQUE: Multidetector row helical CT of the chest was performed with angiographic protocol. Coronal and sagittal reformations were obtained. Coronal and sagittal MIPS were obtained from the axial data set and were submitted for review. Automated dose lowering techniques and/or adjustment according to patient size were utilized for this exam. Comparison: Comparison is made to CT chest 11/15/2012 FINDINGS: Lungs and pleura: Atelectasis versus scarring is seen in the dependent portions of the lungs. Heart and pericardium: Heart size is normal. No pericardial effusion. Vessels: No evidence of pulmonary embolism. Mediastinum and theodora: Subcentimeter lymph nodes are seen. Chest wall and lower neck: Unremarkable. Abdomen: Unremarkable. Bones: Degenerative changes in the thoracic spine. IMPRESSION: 1. No evidence of pulmonary embolism. 2. Mild atelectasis versus scarring is seen in the lower lungs. ACT 112: Negative or not required by law. Electronically signed by: Pacheco Baltazar M.D. 06/12/2022 4:08 PM Hepatobiliary Scan Nuclear Medicine 06/12/22 14:52 NUCLEAR MEDICINE HEPATOBILIARY SCAN CLINICAL HISTORY: Right upper quadrant pain. Nausea. Gallbladder sludge on ultrasound. COMPARISON: CT of the abdomen and pelvis March 27, 2021 and right upper quadrant ultrasound June 10, 2022. TECHNIQUE: 5.3 mCi of technetium 99m Choletec IV was injected at 9:32 AM on June 12, 2022. Immediately following injection, imaging of the abdomen was carried out for 60 minutes in the anterior projection. FINDINGS: Hepatic uptake of radiotracer is prompt and homogeneous. Activity is identified within the gallbladder and common bile duct at 10 minutes. Small bowel activity is noted at 20 minutes. IMPRESSION: Normal hepatobiliary scan. No evidence for acute or chronic cholecystitis. ACT 112: Negative or not required by law. Electronically signed by: José Antonio Ramos M.D. 06/12/2022 11:12 AM Hospital Course (1) Abdominal pain: Patient presented with RUQ and high epigastric abdominal pain - typically post- prandial. RUQ u/s - gall bladder sludge only; CBD wnl. No other findings to suggest acute cholecystitis. HIDA scan - negative for cystic duct obstruction or other abnormalities. No suggestion of chronic cholecystitis. CT abd/pelvis - gall bladder, pancreas wnl. Mild splenomegaly, fatty liver, a few small lymph nodes seen as well. Lipase on multiple occasions wnl. Initially AST/ALT were normal, then frank mildly later in his stay. He was seen by [facility] - they recommended increasing PPI to twice daily and carafate QID. With the above medications his abdominal pain did improve suggesting gastritis, PUD, etc as the cause of his pain. The other possibility is that of viral etiology? (splenomegaly, mild elevation ast/alt, mild lymphadenopathy intra-abdominally, etc) 24 hours prior to discharge his pain was resolved and he was eating/drinking without difficulty. At discharge we advised - * protonix 40mg BID * carafate 1gm TID x 7 days * low fat, bland diet until seen by PCP & GI as outpatient * repeat LFTs post-discharge - within 1 week (2) Chest pain: Patient underwent echocardiogram during his stay in conjunction with formal consultation by [facility]. Echocardiogram showed preserved EF with normal wall motion. EKG wnl. All troponins - despite prolonged time course of chest pain - were negative. Cardiology did not feel his pain was due to ischemia. Pain was felt to be musculoskeletal in origin given the reproducibility of the pain with palpation. CRP was scantly elevated - doubt pericarditis, and symptoms were not suggestive of such. CTA chest without PE or acute findings. Recommended voltaren gel 4gm qid to the chest wall after discharge. (3) Gastroesophageal reflux disease: see #1 above increased PPI to twice daily added carafate [facility] saw patient in consult and he will follow-up with them in the clinic shortly after discharge (4) Essential (primary) hypertension: Continue home Amlodipine and ramipril. (5) Hyperlipidemia: LDL 69 on lipid profile this admission. Due to mild elevation in AST/ALT recommended HOLDING his statin until the LFTs are rechecked. (6) Hepatic steatosis: needs weight loss and should follow with GI for such splenomegaly - 2nd to fatty liver? 2nd to viral process? follow-up for the fatty liver and splenomegaly advised (7) Unspecified asthma, uncomplicated: no exacerbation at this time lungs clear, no wheezing, no respiratory symptoms CTA chest negative (8) Lower urinary tract symptoms (LUTS): Continue home Alfuzosin and Silodosin (9) Anxiety disorder, unspecified: Continue home Fluvoxamine (10) Splenomegaly: etiology? if acute - viral ? tick-borne? other? if chronic - 2nd to fatty liver? other? platelets wnl during the hospital stay. Monospot was negative; EBV titers were sent. Anaplasmosis smear was negative; anaplasmosis DNA was sent. Follow-up needed. (11) Elevated LFTs: AST/ALT only. etiology? reactive to a viral process? although GB sludge was seen on RUQ u/s his CT a/p and HIDA both without acute findings of GB. lipase wnl x 2. repeat LFTs needed post-discharge. f/u EBV titers and Anaplasmosis DNA post-discharge. (12) Intra-abdominal lymphadenopathy: seen on CT abd/pelvis during the stay. etiology uncertain. reactive due to a viral process? malignancy? other? advise repeat CT abd/pelvis in 3-6 weeks to reassess this. Total Time Total Time Spent Total Time Spent (In Minutes): 50 Discharge Plan Discharge Items Patient Disposition: Home - Self-Care Reason For Visit: ABDOMINAL PAIN, CHEST PAIN Discharge Diagnosis: 1. abdominal pain - resolved. Suspect upper GI in origin (stomach, esophagus). 2. chest wall pain - likely musculoskeletal. 3. abnormal "AST" and "ALT" (liver functions) - modestly elevated - etiology uncertain (due to a virus? other cause?). Follow-up needed. 4. mildly enlarged spleen; mildly enlarged lymph nodes intra-abdominally - again etiology uncertain (due to a virus?). Follow-up needed. 5. gall bladder sludge but no evidence of acute cholecytitis. 6. GERD (heartburn/reflux). 7. fatty liver. Activity: As commented below Activity Comment: avoid activities that make your chest wall pain worse (heavy lifting, etc) Exercise/Sports: Wait until after follow-up appointment Non-emergency contact: Primary Care Provider and License Examiner Call non-emergency contact if: you have any medication questions, your symptoms worsen, your pain is not controlled and your pain is worsening Follow-up/Referrals: Jai Tejeda MD [Primary Care Provider] - 06/19/22 10:30 am (5 days for repeat labs and hospital follow-up ) Cassie Jaime PA-C [Physician Floor Tech] - 06/19/22 1:20 pm (1-2 weeks - follow-up of abdominal pain, etc) Diet: Low Fat Ambulatory Orders: EGD Referral (Routine) Location: None Selected Ordered By: Cassie Cardoza Attending Provider Instructions: Mr Purvis, Tomasz were hospitalized for several symptoms - most notably abdominal pain, nausea, and chest pain. Extensive testing was done to look for the cause(s) of each symptom. [facility] saw you for the chest pain. Stress echocardiogram test was normal. Blood work for the heart was normal. Your EKGS were normal as was your telemetry (heart monitoring). Cardiology felt that the chest pain was not from blocked arteries of the heart. The pain seems to be coming from the muscles of the chest wall. A CT scan of the chest did NOT show blood clots, pneumonia, tumors, fluid, etc. Regarding the nausea and abdominal pain - a gall bladder ultrasound, CT scan, HIDA scan, and blood work were performed. You have fatty liver (see handout) and gall bladder sludge but the scans did not appear to show acute cholecystitis (sick gall bladder). We did not see pancreatitis. [facility] saw you in consult and your acid reducers were increased in the event the pain/nausea was from the esophagus and/or stomach. The CT scan of your abdomen showed that your spleen was mildly enlarged. There were also a couple of mildly enlarged lymph nodes. A viral infection could explain both of these findings. Liver disease can cause the spleen to enlarge. Other types of infection can cause the spleen to enlarge as well. Your abdominal pain/nausea improved with acid reducers. You are going to need very close follow-up of your symptoms, the mildly elevated liver tests, the enlarged spleen, etc. Recommendations - 1. Please increase your pantoprazole to 40mg twice daily at least until you see Michael ONTIVEROS in follow-up. 2. Sucralfate (carafate) 1gm three times daily before meals x 7 days. 3. Avoid alcohol. 4. Hold your cholesterol medication (atorvastatin) until you have your liver functions repeated. 5. [place], low fat diet until seen by Michael ONTIVEROS. Avoid excessive amounts of caffeinated beverages, spicy foods, etc. 6. May use voltaren (diclofenac) gel 4 grams up to 4 times daily for chest wall pain. 7. Please have your CBC and Liver function tests repeated by Dr Tejeda within 1 week. 8. Please speak to Dr Tejeda about repeating your CT scan of the abdomen in 2-3 months to follow-up the spleen and lymph nodes. 9. May use [id number] miralax one serving daily for constipation, as desired or as needed. Follow-up - see separate section Return to [facility] if - * you develop worsening abdominal pain * you have worsening nausea and/or vomiting * your chest pain worsens * you develop shortness of breath * you have fevers over 100 degrees * any other concerns It was our pleasure to care for you at [facility]! Dr Simmons Pending Studies at Discharge: Yes Studies:: [place] testing; anaplasmosis testing Stand-Alone Forms: My [facility], Work/School Release, Smoking Cessation Medications and DC Order Prescriptions: Continued ramipril [Altace] 10 mg capsule 10 mg PO QAM Qty: 90 3RF amlodipine [Norvasc] 5 mg tablet 5 mg PO QAM Qty: 90 3RF Breo Ellipta 100-25 mcg/dose blister with device 1 inh inhalation DAILY Qty: 60 3RF silodosin [Rapaflo] 8 mg capsule 8 mg PO DAILY Qty: 30 11RF Label Comments: QAM Rx Instructions: must administer with a meal/food albuterol sulfate [ProAir HFA] 90 mcg/actuation HFA aerosol inhaler 1 puffs INH Q6H PRN (Reason: Shortness Of Breath) fluvoxamine 50 mg tablet 50 mg PO BID Label Comments: TAKING FOR OCD Changed pantoprazole 40 mg tablet,delayed release (DR/EC) 40 mg PO BID Qty: 60 0RF Discontinued atorvastatin [Lipitor] 20 mg tablet 20 mg PO HS Qty: 90 3RF No Action alprazolam [Xanax] 0.5 mg tablet 0.5 mg PO DAILY PRN (Reason: anxiety) Qty: 45 0RF Discharge Orders: Discharge Order (Routine); Ordered 06/13/22 Ordered By: Glynn Reardon/Other Patient Handouts: NAFLD Admission Data Admit Date/Time: 06/12/22 20:06 Attending Provider: Glynn Simmons Admit Provider: Estiven Hernandez Primary Care Provider: Jai Tejeda Other Providers: Randall Joe ; Johan Sierra ; Dexter Santos Other Interventions: Discharge Summary Assessment (RN) Last Done: 06/13/22 12:54 Coding Level of Care Code HOSP INP/OBS DISCH >30 MIN Diagnoses Abdominal pain R10.9 Chest pain R07.9 Gastroesophageal reflux disease K21.9 Essential (primary) hypertension I10 Hyperlipidemia E78.00 Hyperlipidemia type: pure hypercholesterolemia Hepatic steatosis K76.0 Unspecified asthma, uncomplicated J45.909 Lower urinary tract symptoms (LUTS) R39.9 Anxiety disorder, unspecified F41.9 Splenomegaly R16.1 Elevated LFTs R79.89 Intra-abdominal lymphadenopathy R59.0
--- NOTE | 2022-06-13 21:36 | Electrocardiogram Report ---
Test Reason : Blood Pressure : / mmHG Vent. Rate : 084 BPM Atrial Rate : 084 BPM P-R Int : 146 ms QRS Dur : 092 ms QT Int : 392 ms P-R-T Axes : 000 -21 018 degrees QTc Int : 463 ms Normal sinus rhythm Normal ECG When compared with ECG of 10-JUN-2022 21:39, No significant change was found Confirmed by Richard Casas ([id number]) on 06/13/2022 9:35:45 PM Referred By: REFERRED SELF Confirmed By:Richard Casas
[2022-06-14 12:45] LABS: Epstein Barr Virus Early Ag Ab <9.00 U/mL
== END 2022-06-13 13:22 | disposition home or self-care (01) | DRG 392 ==
LOC: 2N 18:03 → ED 18:03 → SUATTDRO 22:34 → 2N 23:35